=== PATIENT | male | born 1960 | race Caucasian/White ===

== ENCOUNTER 2017-12-29 13:36 | Emergency (ER) | payer MEDICAID, OTHER ==
[~2017-12-29] VITALS: Ht 195.6 cm; Wt 124.6 kg
[~2017-12-29 13:36] MED LIST: NO HOME MEDS
[2017-12-29] MEDS ORDERED: METO-467 PO (14:48)
[2017-12-29 14:56] VITALS: BP 176/92
== END 2017-12-29 14:58 | disposition home or self-care (01) ==
LOC: ER 13:36
DX: I10 Essential (primary) hypertension (principal); F17.200 Nicotine dependence, unspecified, uncomplicated
CPT/HCPCS: 99283

== ENCOUNTER 2021-02-02 10:54 | Inpatient (IN) | payer MEDICAID, OTHER ==
[~2021-02-02] VITALS: Ht 198.1 cm; Wt 131.0 kg
[2021-02-02] VITALS (9 sets, daily range): BP systolic 103–168; BP diastolic 57–150
[~2021-02-02 10:54] MED LIST changes: +METO-467 PO
[2021-02-02] MEDS ORDERED: aspirin 81mg tab.chew PO ONE (11:10)
[2021-02-02] MEDS ORDERED: nitroGLYCERIN 0.4mg SUBLingual tab SL PRN ×2 (11:10→17:50)
[2021-02-02] MEDS ORDERED: furosemide 10 MG/1 ML 10ml inj IV ONE (11:10)
[2021-02-02] MEDS ORDERED: diltiazem 5mg/ml 5ml inj. IV ONE (11:15)
[2021-02-02 11:40] LABS: BASOPHILS # (AUTO) 0.1 X10'3 (0-0.2); BASOPHILS % (AUTO) 0.8 % (0-1); EOSINOPHILS # (AUTO) 0.1 X10'3 (0-0.9); EOSINOPHILS % (AUTO) 1.3 % (0-6); HEMATOCRIT 36.9 % (42.0-52.0); HEMOGLOBIN 11.8 g/dl (14.0-17.9); MEAN CORPUSCULAR HEMOGLOBIN 28.2 PG (27.0-31.0); MEAN CORPUSCULAR HGB CONC 31.9 g/dL (33.0-36.5); MEAN CORPUSCULAR VOLUME 88.2 FL (78-98); MONOCYTES # (AUTO) 0.6 X10'3 (0-0.9); MONOCYTES % (AUTO) 7.3 % (2-12); NEUTROPHILS # (AUTO) 6.5 X10'3 (1.8-7.7); NEUTROPHILS % (AUTO) 78.6 % (42-75); PLATELET COUNT 245 X10'3 (140-440); RED BLOOD COUNT 4.18 X10'6 (4.70-6.10); RED CELL DISTRIBUTION WIDTH 15.5 % (11.5-14.5); WHITE BLOOD COUNT 8.3 X10'3 (4.5-11.0)
[2021-02-02 11:40] LABS: ABG BASE EXCESS -1.5 mmol/L (-2.0-2.0); ABG HCO3 23.1 mmol/L (22.0-26.0); ABG OXYGEN SATURATION 90.8 % (94-97); ABG PCO2 (T) 38.5 mmHg (35.0-48.0); ABG PO2 (T) 64.4 mmHg (75.0-100.0); ALLEN'S TEST POSITIVE; FMetHb 0.2 % (0.0-1.5); FO2Hb 89.7 % (94-97); PATIENT TEMPERATURE 37.1; TOTAL HEMOGLOBIN 12.2 G/dl (14.0-18.0)
[2021-02-02] MEDS: diltiazem-NS 100mg/100ml 100 ML IV SCH (11:50)
[2021-02-02 11:59] LABS: ALANINE AMINOTRANSFERASE 30 U/L (12-78); ALBUMIN 3.2 G/DL (3.4-5.0); ALBUMIN/GLOBULIN RATIO 0.7 (1.1-1.5); ALKALINE PHOSPHATASE 70 IU/L (46-116); ANION GAP 9 (8-16); BILIRUBIN,TOTAL 0.9 MG/DL (0.1-1.0); BLOOD UREA NITROGEN 31 MG/DL (7-18); BUN/CREATININE RATIO 16.8 (5.4-32.0); CALCIUM 9.1 MG/DL (8.5-10.1); CHLORIDE 107 MMOL/L (99-107); CREATININE 1.84 MG/DL (0.60-1.10); GLUCOSE 142 MG/DL (70-104); SODIUM 141 MMOL/L (135-145); TOTAL CARBON DIOXIDE 24.6 MMOL/L (24-32); TOTAL PROTEIN 7.8 G/DL (6.4-8.2); eGFR 38 ML/MIN
[2021-02-02 12:10] LABS: MAGNESIUM 1.8 MG/DL (1.5-2.4)
[2021-02-02 12:11] LABS: ASPARTATE AMINO TRANSFERASE 32 U/L (10-37); POTASSIUM 4.7 MMOL/L (3.5-5.1)
[2021-02-02] MEDS ORDERED: HYDR25TA4 PO (12:17)
[2021-02-02] MEDS ORDERED: LISI10TA27 PO (12:17)
[2021-02-02] MEDS ORDERED: heparin 10,000 units/1 ML INJ IV ONE ×2 (12:20→12:25)
[2021-02-02 12:33] LABS: PARTIAL THROMBOPLASTIN TIME 29 SECONDS (22-32)
[2021-02-02] MEDS ORDERED: magnesium 4gm in 100ml NS 100 ML IV PRN (12:50)
[2021-02-02] MEDS ORDERED: magnesium 2GM in 50ml NS 50 ML IV PRN (12:50)
[2021-02-02] MEDS ORDERED: potassium Cl 20 mEq SR tablet PO PRN ×2 (12:50)
[2021-02-02] MEDS ORDERED: magnesium Cl slow-release 64mg tablet PO PRN (12:50)
[2021-02-02] MEDS ORDERED: ondansetron/PF 4mg/2ml inj IV PRN (12:50)
[2021-02-02] MEDS ORDERED: morphine 2 MG/ML inj. syringe IV PRN (12:50)
[2021-02-02] MEDS ORDERED: potassium Cl 40MEQ/1/2NS 520ml 520 ML IV PRN ×2 (12:50)
[2021-02-02] MEDS ORDERED: acetaminophen 325mg tablet PO PRN (12:50)
--- NOTE | 2021-02-02 13:50 | NUR ---
Patient in room PCU 3028. I have received report from Teofilo SANDHU and had the opportunity to ask questions and assume patient care.
[2021-02-02] MEDS: heparin 25,000 UNIT/250ml bag 250 ML IV SCH (13:57)
--- NOTE | 2021-02-02 14:00 | NUR ---
Patient oriented to room. Call light within reach.
[2021-02-02] MEDS: carVEDilol 12.5mg tablet PO SCH (15:36)
[2021-02-02] MEDS ORDERED: hydrALAZINE 20mg/ml inj. IV PRN (17:10)
[2021-02-02] MEDS ORDERED: furosemide 40mg/4ml inj IV ONE ×2 (17:25→23:00)
[2021-02-02] MEDS: furosemide 40mg/4ml inj IV SCH (17:26)
[2021-02-02] MEDS: potassium Cl 20 mEq SR tablet PO SCH (17:31)
[2021-02-02] MEDS ORDERED: aminophylline 250mg/10ml inj. IV PRN (17:50)
[2021-02-02] MEDS ORDERED: regadenoson 0.4mg/5ml syringe IV PRN (17:50)
[2021-02-02] MEDS ORDERED: metoprolol tartrate 1mg/ml inj IV PRN (17:50)
--- NOTE | 2021-02-02 18:08 | NUR ---
Paged Dr. Javier regarding heart rate. PAGER ID: [phone] MESSAGE: [phone] Shane Ross. Heart rate 130s, now in Aflutter. Walk Score [phone].
--- NOTE | 2021-02-02 18:30 | NUR ---
received order from MD to increase the dosage of cardizem drip
[2021-02-02] MEDS: K and/or MAG REPLACEMENT MC SCH (20:00)
[2021-02-02] MEDS ORDERED: heparin, porcine 5000 units/ml vial SQ SCH (20:00)
[2021-02-02] MEDS: heparin 10,000 units/1 ML INJ IV PRN (20:58)
[2021-02-03] VITALS (21 sets, daily range): BP systolic 96–146; BP diastolic 50–107
--- NOTE | 2021-02-03 | NUR ---
pt alert and oriented. heart rate keeps above 130 after cardizem drip being increased to 10ml/hr. MD being called again and ordered digoxin. HR went down 70 several hours and went up to around 111 after a while. and my last round was 71 in the monitor. pt resting on bed quietly during all shift. no complaining of pain. being npo after midnight for possible test this morning. heparin drip increased twice. next ptt 1000. keep monitoring
[2021-02-03] MEDS: diltiazem-NS 100mg/100ml 100 ML IV SCH (01:47)
--- NOTE | 2021-02-03 02:39 | NUR ---
PAGER ID: [phone] MESSAGE: PT IN ROOM 3028 A HAS SUSTAINABLE HR 137-138, AFIB/AFLUTTER. ON CARDIZEM DRIP 10ML/HR.PLEASE ADVISE GERMAIN EXT [id number]
[2021-02-03] MEDS ORDERED: digoxin 250mcg/ml 2ml ampule IV ONE ×2 (02:55→09:00)
[2021-02-03] MEDS: heparin 10,000 units/1 ML INJ IV PRN ×2 (04:18→13:12)
[2021-02-03 06:07] LABS: BASOPHILS # (AUTO) 0.1 X10'3 (0-0.2); BASOPHILS % (AUTO) 0.7 % (0-1); EOSINOPHILS # (AUTO) 0.3 X10'3 (0-0.9); EOSINOPHILS % (AUTO) 4.5 % (0-6); HEMATOCRIT 38.7 % (42.0-52.0); HEMOGLOBIN 12.3 g/dl (14.0-17.9); LYMPHOCYTES # (AUTO) 1.6 X10'3 (1.1-4.8); LYMPHOCYTES % (AUTO) 21.8 % (21-51); MEAN CORPUSCULAR HEMOGLOBIN 28.6 PG (27.0-31.0); MEAN CORPUSCULAR HGB CONC 31.7 g/dL (33.0-36.5); MEAN PLATELET VOLUME 9.3 FL (7.4-10.4); MONOCYTES # (AUTO) 0.7 X10'3 (0-0.9); MONOCYTES % (AUTO) 9.6 % (2-12); NEUTROPHILS # (AUTO) 4.6 X10'3 (1.8-7.7); NEUTROPHILS % (AUTO) 63.4 % (42-75); PLATELET COUNT 251 X10'3 (140-440); RED CELL DISTRIBUTION WIDTH 15.4 % (11.5-14.5); WHITE BLOOD COUNT 7.2 X10'3 (4.5-11.0)
[2021-02-03 06:21] LABS: ALBUMIN 3.1 G/DL (3.4-5.0); ANION GAP 10 (8-16); BLOOD UREA NITROGEN 36 MG/DL (7-18); BUN/CREATININE RATIO 15.3 (5.4-32.0); CALCIUM 9.3 MG/DL (8.5-10.1); CHLORIDE 105 MMOL/L (99-107); CHOL/HDL RATIO 4.9 (0.00-4.99); CHOLESTEROL 133 MG/DL (0-200); CREATININE 2.35 MG/DL (0.60-1.10); GLUCOSE 96 MG/DL (70-104); HDL CHOLESTEROL 27 MG/DL (35-60); LDL CHOLESTEROL 95 MG/DL (50-100); MAGNESIUM 1.9 MG/DL (1.5-2.4); POTASSIUM 3.8 MMOL/L (3.5-5.1); SODIUM 142 MMOL/L (135-145); TOTAL CARBON DIOXIDE 26.7 MMOL/L (24-32); TRIGLYCERIDES 80 MG/DL (20-135); eGFR 29 ML/MIN
--- NOTE | 2021-02-03 06:22 | NUR ---
Patient in room PCU 3028. report given to Gwen SANDHU and had the opportunity to ask questions and assume patient care.
[2021-02-03] MEDS: K and/or MAG REPLACEMENT MC SCH ×2 (08:00→20:00)
[2021-02-03] MEDS: furosemide 40mg/4ml inj IV SCH ×2 (08:55→21:06)
[2021-02-03] MEDS: potassium Cl 20 mEq SR tablet PO SCH ×2 (08:55→17:51)
[2021-02-03] MEDS: carVEDilol 12.5mg tablet PO SCH ×2 (12:09→21:06)
[2021-02-03] MEDS: DOBUTamine-DoBUTrex 500mg/D5W 250 ML IV SCH (12:45)
[2021-02-03] MEDS: heparin 25,000 UNIT/250ml bag 250 ML IV SCH (13:14)
--- NOTE | 2021-02-03 15:27 | NUR ---
Katie Javier with results of stress test
--- NOTE | 2021-02-03 19:00 | NUR ---
PTT 59 . STILL IN THERAPEUTIC LEVEL. KEEP THE CURRENT DOSE. RECEIVED REPORT FROM WESTLEY. NO ACUTE DISTRESS DOBUTAMINE DRIP AND HEPARIN DRIP RUNNING. KEEP MONITORING
[2021-02-04] MEDS: DOBUTamine-DoBUTrex 500mg/D5W 250 ML IV SCH ×3 (01:30→19:46)
[2021-02-04 02:00] VITALS: BP 99/59
[2021-02-04 02:02] LABS: BASOPHILS # (AUTO) 0.1 X10'3 (0-0.2); BASOPHILS % (AUTO) 1.1 % (0-1); EOSINOPHILS # (AUTO) 0.3 X10'3 (0-0.9); EOSINOPHILS % (AUTO) 4.4 % (0-6); HEMATOCRIT 37.9 % (42.0-52.0); HEMOGLOBIN 12.2 g/dl (14.0-17.9); LYMPHOCYTES # (AUTO) 1.6 X10'3 (1.1-4.8); LYMPHOCYTES % (AUTO) 21.3 % (21-51); MEAN CORPUSCULAR HEMOGLOBIN 27.9 PG (27.0-31.0); MEAN CORPUSCULAR HGB CONC 32.1 g/dL (33.0-36.5); MEAN CORPUSCULAR VOLUME 86.8 FL (78-98); MEAN PLATELET VOLUME 8.6 FL (7.4-10.4); MONOCYTES # (AUTO) 0.8 X10'3 (0-0.9); MONOCYTES % (AUTO) 10.7 % (2-12); NEUTROPHILS # (AUTO) 4.5 X10'3 (1.8-7.7); NEUTROPHILS % (AUTO) 62.5 % (42-75); PLATELET COUNT 279 X10'3 (140-440); RED BLOOD COUNT 4.37 X10'6 (4.70-6.10); RED CELL DISTRIBUTION WIDTH 15.4 % (11.5-14.5); WHITE BLOOD COUNT 7.3 X10'3 (4.5-11.0)
[2021-02-04 02:13] LABS: ALBUMIN 2.9 G/DL (3.4-5.0); ANION GAP 10 (8-16); BLOOD UREA NITROGEN 49 MG/DL (7-18); BUN/CREATININE RATIO 18.3 (5.4-32.0); CALCIUM 8.9 MG/DL (8.5-10.1); CHLORIDE 105 MMOL/L (99-107); CREATININE 2.68 MG/DL (0.60-1.10); GLUCOSE 123 MG/DL (70-104); MAGNESIUM 1.9 MG/DL (1.5-2.4); POTASSIUM 3.9 MMOL/L (3.5-5.1); SODIUM 143 MMOL/L (135-145); TOTAL CARBON DIOXIDE 27.9 MMOL/L (24-32); eGFR 25 ML/MIN
[2021-02-04] MEDS: heparin 10,000 units/1 ML INJ IV PRN (03:08)
--- NOTE | 2021-02-04 03:17 | NUR ---
PTT 40 HEPARIN RATE INCREASED. AND 4000 UNITS OF BOLUS GIVEN. NO ACUTE DISTRESS AT THIS TIME.
[2021-02-04 06:00] VITALS: BP 128/82
[2021-02-04] MEDS: HYDROchlorothiazide 25mg tablet PO SCH (07:56)
[2021-02-04] MEDS: furosemide 40mg/4ml inj IV SCH (07:56)
[2021-02-04] MEDS: carVEDilol 12.5mg tablet PO SCH ×2 (07:56→19:47)
[2021-02-04] MEDS: potassium Cl 20 mEq SR tablet PO SCH ×2 (07:56→17:10)
[2021-02-04] MEDS: K and/or MAG REPLACEMENT MC SCH ×2 (08:00→19:47)
[2021-02-04 11:00] VITALS: BP 118/61
[2021-02-04] MEDS: heparin 25,000 UNIT/250ml bag 250 ML IV SCH (11:43)
[2021-02-04 15:00] VITALS: BP 108/42
[2021-02-04 16:54] LABS: PARTIAL THROMBOPLASTIN TIME 27 SECONDS (22-32)
[2021-02-04 18:00] VITALS: BP 110/56
[2021-02-04 18:38] VITALS: BP 110/56
[2021-02-04] MEDS: amiodarone 200mg tablet PO SCH (23:14)
[2021-02-04 23:15] LABS: ALANINE AMINOTRANSFERASE 27 U/L (12-78); ALBUMIN/GLOBULIN RATIO 0.7 (1.1-1.5); ALKALINE PHOSPHATASE 63 IU/L (46-116); ASPARTATE AMINO TRANSFERASE 20 U/L (10-37); BILIRUBIN,DIRECT 0.2 MG/DL (0-0.3); BILIRUBIN,TOTAL 0.5 MG/DL (0.1-1.0); TOTAL PROTEIN 6.9 G/DL (6.4-8.2)
[2021-02-05] VITALS (8 sets, daily range): BP systolic 88–131; BP diastolic 53–76
[2021-02-05 06:43] LABS: BASOPHILS # (AUTO) 0.1 X10'3 (0-0.2); BASOPHILS % (AUTO) 1.2 % (0-1); EOSINOPHILS # (AUTO) 0.3 X10'3 (0-0.9); HEMATOCRIT 40.5 % (42.0-52.0); HEMOGLOBIN 12.7 g/dl (14.0-17.9); LYMPHOCYTES # (AUTO) 1.3 X10'3 (1.1-4.8); LYMPHOCYTES % (AUTO) 20.2 % (21-51); MEAN CORPUSCULAR HEMOGLOBIN 27.7 PG (27.0-31.0); MEAN CORPUSCULAR HGB CONC 31.4 g/dL (33.0-36.5); MEAN CORPUSCULAR VOLUME 88.1 FL (78-98); MEAN PLATELET VOLUME 7.9 FL (7.4-10.4); MONOCYTES # (AUTO) 0.7 X10'3 (0-0.9); MONOCYTES % (AUTO) 11.7 % (2-12); NEUTROPHILS % (AUTO) 62.9 % (42-75); PLATELET COUNT 331 X10'3 (140-440); RED BLOOD COUNT 4.59 X10'6 (4.70-6.10); RED CELL DISTRIBUTION WIDTH 15.8 % (11.5-14.5); WHITE BLOOD COUNT 6.4 X10'3 (4.5-11.0)
[2021-02-05 07:14] LABS: ALBUMIN 3.2 G/DL (3.4-5.0); ANION GAP 7 (8-16); BLOOD UREA NITROGEN 54 MG/DL (7-18); BUN/CREATININE RATIO 20.1 (5.4-32.0); CALCIUM 9.4 MG/DL (8.5-10.1); CHLORIDE 104 MMOL/L (99-107); CREATININE 2.69 MG/DL (0.60-1.10); GLUCOSE 96 MG/DL (70-104); MAGNESIUM 2.1 MG/DL (1.5-2.4); POTASSIUM 4.2 MMOL/L (3.5-5.1); SODIUM 140 MMOL/L (135-145); TOTAL CARBON DIOXIDE 29.4 MMOL/L (24-32); eGFR 24 ML/MIN
[2021-02-05] MEDS: potassium Cl 20 mEq SR tablet PO SCH ×2 (07:18→17:14)
[2021-02-05] MEDS: HYDROchlorothiazide 25mg tablet PO SCH (07:18)
[2021-02-05] MEDS: amiodarone 200mg tablet PO SCH ×2 (07:18→20:47)
[2021-02-05] MEDS: carVEDilol 12.5mg tablet PO SCH ×2 (07:18→20:47)
[2021-02-05] MEDS: K and/or MAG REPLACEMENT MC SCH ×2 (08:00→20:00)
[2021-02-05] MEDS ORDERED: MIDAZolam 1mg/ml 10ml vial IV ONE (08:30)
[2021-02-05] MEDS: DOBUTamine-DoBUTrex 500mg/D5W 250 ML IV SCH (08:38)
[2021-02-05] MEDS ORDERED: MIDAZolam 5mg/ml 2ml vial IV ONE (09:00)
[2021-02-05] MEDS ORDERED: morphine 10mg/ml inj. IV ONE (09:00)
[2021-02-05] MEDS: apixaban 5mg tablet PO SCH ×2 (09:38→20:47)
[2021-02-05] MEDS ORDERED: ondansetron 4mg rapidly disintigrating tab PO PRN (11:30)
--- NOTE | 2021-02-05 13:44 | NUR ---
REI and cardioversion performed at bedside around 1240. patient tolerated well. AT this time, patient has just eaten lunch, is awake and alert and RN spoke with mother on the phone for an update.
[2021-02-06 02:00] VITALS: BP 126/66
[2021-02-06] MEDS: DOBUTamine-DoBUTrex 500mg/D5W 250 ML IV SCH ×2 (05:06→16:35)
[2021-02-06 06:00] VITALS: BP 114/59
--- NOTE | 2021-02-06 06:26 | NUR ---
Problems reprioritized. Patient report given, questions answered & plan of care reviewed with Sammie.
[2021-02-06 07:07] LABS: BASOPHILS # (AUTO) 0.1 X10'3 (0-0.2); BASOPHILS % (AUTO) 0.9 % (0-1); EOSINOPHILS # (AUTO) 0.3 X10'3 (0-0.9); EOSINOPHILS % (AUTO) 4.7 % (0-6); HEMATOCRIT 36.7 % (42.0-52.0); HEMOGLOBIN 11.8 g/dl (14.0-17.9); LYMPHOCYTES # (AUTO) 1.4 X10'3 (1.1-4.8); LYMPHOCYTES % (AUTO) 20.9 % (21-51); MEAN CORPUSCULAR HEMOGLOBIN 28.1 PG (27.0-31.0); MEAN CORPUSCULAR HGB CONC 32.2 g/dL (33.0-36.5); MEAN CORPUSCULAR VOLUME 87.4 FL (78-98); MEAN PLATELET VOLUME 8.3 FL (7.4-10.4); MONOCYTES # (AUTO) 0.7 X10'3 (0-0.9); MONOCYTES % (AUTO) 10.7 % (2-12); NEUTROPHILS # (AUTO) 4.3 X10'3 (1.8-7.7); NEUTROPHILS % (AUTO) 62.8 % (42-75); PLATELET COUNT 321 X10'3 (140-440); RED CELL DISTRIBUTION WIDTH 15.6 % (11.5-14.5); WHITE BLOOD COUNT 6.9 X10'3 (4.5-11.0)
[2021-02-06 07:19] LABS: ALBUMIN 3.1 G/DL (3.4-5.0); ANION GAP 8 (8-16); BLOOD UREA NITROGEN 65 MG/DL (7-18); BUN/CREATININE RATIO 19.9 (5.4-32.0); CALCIUM 9.1 MG/DL (8.5-10.1); CHLORIDE 103 MMOL/L (99-107); CREATININE 3.27 MG/DL (0.60-1.10); GLUCOSE 100 MG/DL (70-104); MAGNESIUM 2.2 MG/DL (1.5-2.4); POTASSIUM 4.6 MMOL/L (3.5-5.1); SODIUM 138 MMOL/L (135-145); TOTAL CARBON DIOXIDE 27.5 MMOL/L (24-32); eGFR 19 ML/MIN
[2021-02-06] MEDS: K and/or MAG REPLACEMENT MC SCH ×2 (08:00→20:00)
[2021-02-06] MEDS: potassium Cl 20 mEq SR tablet PO SCH (09:39)
[2021-02-06] MEDS: apixaban 5mg tablet PO SCH ×2 (09:39→20:43)
[2021-02-06] MEDS: HYDROchlorothiazide 25mg tablet PO SCH (09:40)
[2021-02-06] MEDS: carVEDilol 12.5mg tablet PO SCH ×2 (09:40→20:43)
[2021-02-06] MEDS: amiodarone 100mg tablet PO SCH ×2 (09:44→20:43)
[2021-02-06 11:00] VITALS: BP 101/60
[2021-02-06 15:00] VITALS: BP 120/57
--- NOTE | 2021-02-06 16:19 | NUR ---
Initial: Pt presented with worsening SOB; admitted for management of A.fib, CHF, and COPD. Pt is on a double protein diet PO is 75%. Pt has good appetite and has been improving. Last 3 meals have been 100%. No nutrition problem at this time. Will continue to follow. Addendum: 02/06/21 at [address] Amended: Links added. Addendum: 02/06/21 at [address] RD agree with note
[2021-02-06 18:00] VITALS: BP 107/48
--- NOTE | 2021-02-06 18:20 | NUR ---
Problems reprioritized. Patient report given, questions answered & plan of care reviewed with EDSON Barreto.
[2021-02-06 22:00] VITALS: BP 135/66
[2021-02-07] VITALS (7 sets, daily range): BP systolic 96–128; BP diastolic 39–86
[2021-02-07] MEDS: DOBUTamine-DoBUTrex 500mg/D5W 250 ML IV SCH ×2 (04:48→08:54)
[2021-02-07 06:26] LABS: BASOPHILS # (AUTO) 0.1 X10'3 (0-0.2); BASOPHILS % (AUTO) 0.8 % (0-1); EOSINOPHILS # (AUTO) 0.3 X10'3 (0-0.9); EOSINOPHILS % (AUTO) 5.1 % (0-6); HEMATOCRIT 37.3 % (42.0-52.0); HEMOGLOBIN 11.9 g/dl (14.0-17.9); LYMPHOCYTES # (AUTO) 1.3 X10'3 (1.1-4.8); LYMPHOCYTES % (AUTO) 19.2 % (21-51); MEAN CORPUSCULAR HEMOGLOBIN 27.9 PG (27.0-31.0); MEAN CORPUSCULAR HGB CONC 31.9 g/dL (33.0-36.5); MEAN CORPUSCULAR VOLUME 87.5 FL (78-98); MEAN PLATELET VOLUME 8.6 FL (7.4-10.4); MONOCYTES # (AUTO) 0.7 X10'3 (0-0.9); MONOCYTES % (AUTO) 10.4 % (2-12); NEUTROPHILS # (AUTO) 4.2 X10'3 (1.8-7.7); NEUTROPHILS % (AUTO) 64.5 % (42-75); PLATELET COUNT 294 X10'3 (140-440); RED BLOOD COUNT 4.26 X10'6 (4.70-6.10); RED CELL DISTRIBUTION WIDTH 15.3 % (11.5-14.5); WHITE BLOOD COUNT 6.5 X10'3 (4.5-11.0)
[2021-02-07 06:41] LABS: ALBUMIN 3.1 G/DL (3.4-5.0); ANION GAP 11 (8-16); BLOOD UREA NITROGEN 69 MG/DL (7-18); BUN/CREATININE RATIO 21.6 (5.4-32.0); CHLORIDE 104 MMOL/L (99-107); CREATININE 3.19 MG/DL (0.60-1.10); GLUCOSE 92 MG/DL (70-104); MAGNESIUM 2.3 MG/DL (1.5-2.4); POTASSIUM 4.5 MMOL/L (3.5-5.1); SODIUM 140 MMOL/L (135-145); TOTAL CARBON DIOXIDE 25.4 MMOL/L (24-32); eGFR 20 ML/MIN
--- NOTE | 2021-02-07 06:42 | NUR ---
Patient in room PCU 3012. I have received report from EDSON Barreto and had the opportunity to ask questions and assume patient care.
[2021-02-07] MEDS: apixaban 5mg tablet PO SCH ×2 (07:15→21:57)
[2021-02-07] MEDS: carVEDilol 12.5mg tablet PO SCH ×2 (07:15→21:57)
[2021-02-07] MEDS: amiodarone 100mg tablet PO SCH (07:15)
[2021-02-07] MEDS: K and/or MAG REPLACEMENT MC SCH ×2 (07:17→20:00)
[2021-02-07 10:13] LABS: ALANINE AMINOTRANSFERASE 85 U/L (12-78); ALBUMIN/GLOBULIN RATIO 0.8 (1.1-1.5); ALKALINE PHOSPHATASE 60 IU/L (46-116); ASPARTATE AMINO TRANSFERASE 73 U/L (10-37); BILIRUBIN,DIRECT 0.2 MG/DL (0-0.3); BILIRUBIN,TOTAL 0.4 MG/DL (0.1-1.0); TOTAL PROTEIN 7.2 G/DL (6.4-8.2)
[2021-02-07] MEDS ORDERED: amiodarone 200mg tablet PO SCH (10:35)
[2021-02-07 11:50] LABS: TOTAL PROTEIN,URINE RANDOM 14.2 MG/DL
--- NOTE | 2021-02-07 18:02 | NUR ---
Patient report received from and discussed with Sammie.
--- NOTE | 2021-02-07 18:30 | NUR ---
Problems reprioritized. Patient report given, questions answered & plan of care reviewed with EDSON Anderson.
[2021-02-07] MEDS: amiodarone 200mg tablet PO SCH (21:57)
--- NOTE | 2021-02-08 06:20 | NUR ---
Report given to and discussed with Cristy SANDHU.
--- NOTE | 2021-02-08 06:39 | NUR ---
Patient in room PCU 3012. I have received report from Justin SANDHU and had the opportunity to ask questions and assume patient care.
[2021-02-08 07:00] VITALS: BP 122/46
[2021-02-08 07:22] LABS: MAGNESIUM 2.3 MG/DL (1.5-2.4)
[2021-02-08] MEDS: DOBUTamine-DoBUTrex 500mg/D5W 250 ML IV SCH ×2 (07:22→18:51)
[2021-02-08] MEDS: amiodarone 200mg tablet PO SCH ×2 (07:23→19:47)
[2021-02-08] MEDS: apixaban 5mg tablet PO SCH ×2 (07:23→19:47)
[2021-02-08] MEDS: carVEDilol 12.5mg tablet PO SCH ×2 (07:23→19:47)
[2021-02-08] MEDS: K and/or MAG REPLACEMENT MC SCH ×2 (08:00→20:00)
[2021-02-08] MEDS: normal saline 1000ml 1,000 ML IV SCH (09:41)
[2021-02-08 09:52] LABS: BASOPHILS % (AUTO) 0.7 % (0-1); EOSINOPHILS # (AUTO) 0.4 X10'3 (0-0.9); EOSINOPHILS % (AUTO) 5.1 % (0-6); HEMATOCRIT 38.5 % (42.0-52.0); LYMPHOCYTES # (AUTO) 1.3 X10'3 (1.1-4.8); MEAN CORPUSCULAR HEMOGLOBIN 27.6 PG (27.0-31.0); MEAN CORPUSCULAR VOLUME 88.8 FL (78-98); MEAN PLATELET VOLUME 8.9 FL (7.4-10.4); MONOCYTES # (AUTO) 0.8 X10'3 (0-0.9); MONOCYTES % (AUTO) 10.7 % (2-12); NEUTROPHILS # (AUTO) 4.6 X10'3 (1.8-7.7); NEUTROPHILS % (AUTO) 65.5 % (42-75); PLATELET COUNT 292 X10'3 (140-440); RED BLOOD COUNT 4.34 X10'6 (4.70-6.10); RED CELL DISTRIBUTION WIDTH 15.4 % (11.5-14.5)
[2021-02-08 09:58] LABS: ALANINE AMINOTRANSFERASE 68 U/L (12-78); ALBUMIN 3.1 G/DL (3.4-5.0); ALBUMIN/GLOBULIN RATIO 0.7 (1.1-1.5); ALKALINE PHOSPHATASE 59 IU/L (46-116); ANION GAP 11 (8-16); ASPARTATE AMINO TRANSFERASE 45 U/L (10-37); BILIRUBIN,TOTAL 0.4 MG/DL (0.1-1.0); BLOOD UREA NITROGEN 69 MG/DL (7-18); BUN/CREATININE RATIO 25.2 (5.4-32.0); CALCIUM 8.9 MG/DL (8.5-10.1); CHLORIDE 105 MMOL/L (99-107); CREATININE 2.74 MG/DL (0.60-1.10); GLUCOSE 92 MG/DL (70-104); POTASSIUM 4.3 MMOL/L (3.5-5.1); SODIUM 139 MMOL/L (135-145); TOTAL CARBON DIOXIDE 22.8 MMOL/L (24-32); TOTAL PROTEIN 7.3 G/DL (6.4-8.2); eGFR 24 ML/MIN
[2021-02-08 11:00] VITALS: BP 128/87
[2021-02-08 15:00] VITALS: BP 121/68
[2021-02-08 18:00] VITALS: BP 134/67
--- NOTE | 2021-02-08 18:00 | NUR ---
Patient in room PCU 3012. I have received report from Cristy SANDHU and had the opportunity to ask questions and assume patient care. Pt resting in bed. NAD noted, RR even and unlabored. Pt voiced no concerns. Safety precautions in place. Will continue to monitor.
--- NOTE | 2021-02-08 18:06 | NUR ---
Problems reprioritized. Patient report given, questions answered & plan of care reviewed with Janina SANDHU. Patient stable at transfer of care.
[2021-02-08 22:00] VITALS: BP 156/74
[2021-02-09 02:00] VITALS: BP 122/43
[2021-02-09] MEDS: normal saline 1000ml 1,000 ML IV SCH ×2 (05:40→07:30)
[2021-02-09 06:00] VITALS: BP 109/60
--- NOTE | 2021-02-09 06:28 | NUR ---
Problems reprioritized. Patient report given, questions answered & plan of care reviewed with Cristy Rodriguez.
--- NOTE | 2021-02-09 06:32 | NUR ---
Patient in room PCU 3012. I have received report from Janina SANDHU and had the opportunity to ask questions and assume patient care.
[2021-02-09 07:23] LABS: MAGNESIUM 2.2 MG/DL (1.5-2.4)
[2021-02-09] MEDS: amiodarone 200mg tablet PO SCH (07:30)
[2021-02-09] MEDS: apixaban 5mg tablet PO SCH (07:30)
[2021-02-09] MEDS: carVEDilol 12.5mg tablet PO SCH (07:30)
[2021-02-09 07:44] LABS: BASOPHILS # (AUTO) 0.1 X10'3 (0-0.2); BASOPHILS % (AUTO) 0.9 % (0-1); EOSINOPHILS # (AUTO) 0.4 X10'3 (0-0.9); EOSINOPHILS % (AUTO) 4.9 % (0-6); HEMATOCRIT 37.6 % (42.0-52.0); LYMPHOCYTES # (AUTO) 1.4 X10'3 (1.1-4.8); LYMPHOCYTES % (AUTO) 18.5 % (21-51); MEAN CORPUSCULAR HEMOGLOBIN 27.9 PG (27.0-31.0); MEAN CORPUSCULAR HGB CONC 31.9 g/dL (33.0-36.5); MEAN CORPUSCULAR VOLUME 87.5 FL (78-98); MEAN PLATELET VOLUME 9.3 FL (7.4-10.4); MONOCYTES # (AUTO) 0.8 X10'3 (0-0.9); MONOCYTES % (AUTO) 11.5 % (2-12); NEUTROPHILS # (AUTO) 4.7 X10'3 (1.8-7.7); NEUTROPHILS % (AUTO) 64.2 % (42-75); PLATELET COUNT 266 X10'3 (140-440); RED CELL DISTRIBUTION WIDTH 15.6 % (11.5-14.5); WHITE BLOOD COUNT 7.3 X10'3 (4.5-11.0)
[2021-02-09 07:59] LABS: ANION GAP 13 (8-16); BLOOD UREA NITROGEN 56 MG/DL (7-18); BUN/CREATININE RATIO 22.1 (5.4-32.0); CALCIUM 8.7 MG/DL (8.5-10.1); CHLORIDE 108 MMOL/L (99-107); CREATININE 2.53 MG/DL (0.60-1.10); GLUCOSE 91 MG/DL (70-104); POTASSIUM 4.8 MMOL/L (3.5-5.1); SODIUM 142 MMOL/L (135-145); TOTAL CARBON DIOXIDE 21.2 MMOL/L (24-32); eGFR 26 ML/MIN
[2021-02-09] MEDS: K and/or MAG REPLACEMENT MC SCH (08:00)
[2021-02-09] MEDS ORDERED: AMIO200T67 PO (09:06)
[2021-02-09] MEDS ORDERED: CARV-50 PO (09:06)
[2021-02-09] MEDS ORDERED: APIX5TAB3 PO (09:06)
[2021-02-09 11:00] VITALS: BP 125/70
--- NOTE | 2021-02-09 13:15 | NUR ---
Patient is stable for discharge per MD orders. All discharge instructions reviewed with patient and all questioned answered. New prescriptions sent electronically to the pharmacy. PIV discontinued cannula intact. 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 Belongings collected and sent with patient. Wheeled to the lobby by nursing staff. Went home with family in private vehicle.
[2021-02-10 10:02] LABS: A/G RATIO 0.8 (0.7-1.7); BETA GLOBULIN 1.4 g/dL (0.7-1.3); GAMMA GLOBULIN 1.2 g/dL (0.4-1.8); GLOBULIN, TOTAL 3.7 g/dL (2.2-3.9); M-SPIKE Not Observed g/dL (Not Observed); PROTEIN, TOTAL, SERUM 6.7 g/dL (6.0-8.5)
[2021-02-10 15:28] LABS: ANTINUCLEAR ANTIBODIES Positive (Negative)
== END 2021-02-09 13:15 | disposition home or self-care (01) | DRG 280 ==
LOC: ER 10:54 → ED HOLD 12:49 → PCU 3S 13:40
PROVIDERS: ADMIT Internal Medicine; ATTEND Internal Medicine
PROC: 4A02XM4 Measurement of Cardiac Total Activity, External Approach (ICD-10-PCS; 2021-02-03)
PROC: 3E073KZ Introduction of Other Diagnostic Substance into Coronary Artery, Percutaneous Approach (ICD-10-PCS; 2021-02-03)
PROC: 5A2204Z Restoration of Cardiac Rhythm, Single (ICD-10-PCS; principal; 2021-02-05)
DX: I21.4 Non-ST elevation (NSTEMI) myocardial infarction (principal); I50.23 Acute on chronic systolic (congestive) heart failure; I13.0 Hypertensive heart and chronic kidney disease with heart failure and stage 1 through stage 4 chronic kidney disease, or unspecified chronic kidney disease; N17.9 Acute kidney failure, unspecified; N18.30 Chronic kidney disease, stage 3 unspecified; F17.210 Nicotine dependence, cigarettes, uncomplicated; G47.33 Obstructive sleep apnea (adult) (pediatric); I27.20 Pulmonary hypertension, unspecified; I48.0 Paroxysmal atrial fibrillation; J43.9 Emphysema, unspecified; Z79.01 Long term (current) use of anticoagulants; Z79.899 Other long term (current) drug therapy; Z71.6 Tobacco abuse counseling
CPT/HCPCS: 36415; 36600; 71045; 78452; 80048; 80053; 80061; 80076; 80162; 82570; 82803; 83735; 83880; 84155; 84156; 84165; 84300; 84439; 84443; 84484; 85018; 85025; 85651; 85730; 86038; 87081; 87207; 92960; 93005; 93017; 93306; 93308; 93312; 93325; 93922; 94799; 96365; 96375; 97116; 97161; 97530; 99291; A9500; G0378; J1160; J1250; J1644; J1940; J2250; J2270; J3490; J7030

== ENCOUNTER 2021-03-08 19:41 | Emergency (ER) | payer SELFPAY ==
[~2021-03-08] VITALS: Ht 195.6 cm; Wt 127.3 kg
[~2021-03-08 19:41] MED LIST changes: +AMIO200T67 PO; +APIX5TAB3 PO; +CARV-50 PO; -METO-467 PO; -NO HOME MEDS
[2021-03-08 19:52] VITALS: BP 161/77
[2021-03-08] MEDS ORDERED: APIX5TAB3 PO (21:41)
[2021-03-08] MEDS ORDERED: AMIO200T67 PO ×2 (21:41→21:42)
[2021-03-08] MEDS ORDERED: CARV-50 PO (21:41)
== END 2021-03-08 21:58 | disposition home or self-care (01) ==
LOC: ER 19:41
DX: I11.0 Hypertensive heart disease with heart failure (principal); I50.9 Heart failure, unspecified; I48.91 Unspecified atrial fibrillation; Z76.0 Encounter for issue of repeat prescription; Z79.899 Other long term (current) drug therapy
CPT/HCPCS: 99281

== ENCOUNTER 2021-03-12 10:46 | Emergency (ER) | payer OTHER ==
[~2021-03-12] VITALS: Ht 195.6 cm; Wt 127.3 kg
[2021-03-12 10:53] VITALS: BP 180/95
== END 2021-03-12 11:42 | disposition home or self-care (01) ==
LOC: ER 10:47
DX: I11.0 Hypertensive heart disease with heart failure (principal); I50.9 Heart failure, unspecified; I48.91 Unspecified atrial fibrillation; Z76.0 Encounter for issue of repeat prescription; Z79.899 Other long term (current) drug therapy
CPT/HCPCS: 99281

== ENCOUNTER 2024-12-26 23:52 | Inpatient (IN) | payer BC, MEDICAID ==
[~2024-12-26] VITALS: Ht 193 cm; Wt 110.0 kg
[~2024-12-26 23:52] MED LIST changes: +CARV25TA56 PO; +LACT1CAP55 PO; +LOSA1TAB41 PO; +PRAV20TA4 PO
[2024-12-27] VITALS (11 sets, daily range): BP systolic 106–140; BP diastolic 66–84; PULSE 91–111; RESP 20–33; O2SAT 93–99
[2024-12-27 00:47] LABS: BASOPHILS % (AUTO) 0.7 % (0-1); EOSINOPHILS % (AUTO) 0 % (0-6); HEMATOCRIT 37.3 % (42.0-52.0); HEMOGLOBIN 11.5 g/dl (14.0-17.9); LYMPHOCYTES # (AUTO) 0.3 X10'3 (1.1-4.8); LYMPHOCYTES % (AUTO) 5.3 % (21-51); MEAN CORPUSCULAR HEMOGLOBIN 26.6 PG (27.0-31.0); MEAN CORPUSCULAR HGB CONC 30.8 g/dL (33.0-36.5); MEAN CORPUSCULAR VOLUME 86.5 FL (78-98); MEAN PLATELET VOLUME 8.5 FL (7.4-10.4); MONOCYTES # (AUTO) 0.6 X10'3 (0-0.9); MONOCYTES % (AUTO) 9.3 % (2-12); NEUTROPHILS # (AUTO) 5.1 X10'3 (1.8-7.7); NEUTROPHILS % (AUTO) 84.7 % (42-75); PLATELET COUNT 185 X10'3 (140-440); RED BLOOD COUNT 4.32 X10'6 (4.70-6.10); RED CELL DISTRIBUTION WIDTH 18.9 % (11.5-14.5)
[2024-12-27] MEDS: diltiazem 5mg/ml 5ml inj. IV ONE ×3 (00:50→02:27)
[2024-12-27] MEDS: normal saline 1000ML IV soln IV ONE (00:50)
[2024-12-27] MEDS: magnesium sulf-water 2g/50mL 50 ML IV ONE (00:59)
[2024-12-27 01:02] LABS: ALANINE AMINOTRANSFERASE 34 U/L (12-78); ALBUMIN/GLOBULIN RATIO 0.6 (1.1-1.5); ALKALINE PHOSPHATASE 90 IU/L (46-116); ANION GAP 6 (8-16); ASPARTATE AMINO TRANSFERASE 49 U/L (10-37); BILIRUBIN,TOTAL 1.2 MG/DL (0.1-1.0); BLOOD UREA NITROGEN 31 MG/DL (7-18); BUN/CREATININE RATIO 13.7 (10.0-20.0); CALCIUM 8.7 MG/DL (8.5-10.1); CHLORIDE 102 MMOL/L (99-107); CREATININE 2.27 MG/DL (0.60-1.10); GLUCOSE 113 MG/DL (70-104); SODIUM 135 MMOL/L (135-145); TOTAL CARBON DIOXIDE 27.4 MMOL/L (24-32); TOTAL PROTEIN 8.2 G/DL (6.4-8.2); eCRCL 42 ML/MIN; eGFR 29 ML/MIN
[2024-12-27 01:10] LABS: MAGNESIUM 2.3 MG/DL (1.5-2.4)
[2024-12-27] MEDS: diltiazem-NS 100mg/100ml 100 ML IV PRN (01:18)
[2024-12-27 01:33] LABS: C-REACTIVE PROTEIN 7.96 MG/DL (0.0-0.5)
[2024-12-27] MEDS: heparin 10,000 units/1 ML INJ IV ONE (01:35)
[2024-12-27 01:39] LABS: PRO BRAIN NATRIURETIC PEPTIDE > 30000 PG/ML (0-125)
[2024-12-27 01:40] LABS: APTT 30 SECONDS (22-32); INR 1.4 INR
[2024-12-27 01:43] LABS: PROTHROMBIN TIME 14.1 SECONDS (9.0-12.0)
[2024-12-27] MEDS: MESSAGE TO NURSING IV ONE (02:20)
[2024-12-27 03:01] LABS: ABG HCO3 26.3 mmol/L (21.0-28.0); ABG OXYGEN SATURATION 90.8 % (94.0-98.0); ABG PCO2 (T) 82.1 mmHg (35.0-48.0); ABG PH (T) 7.131 (7.350-7.450); ABG PO2 (T) 85.9 mmHg (83.0-108.0); ALLEN'S TEST Modified; FCOHb 0.8 % (0.5-1.5); FHHb 9.1 % (0.0-5.0); FMetHb 0.2 % (0.0-1.5); FO2Hb 89.9 % (94.0-98.0); MODE NRB MASK; PATIENT TEMPERATURE 38.3; TOTAL HEMOGLOBIN 12.2 G/dl (13.5-17.5)
[2024-12-27] MEDS ORDERED: magnesium sulf-water 2g/50mL 50 ML IV ONE (04:35)
[2024-12-27] MEDS: CefTRIAXone/D5W-Rocephin 1gm 50 ML IV ONE (04:43)
[2024-12-27] MEDS: furosemide 10 MG/1 ML 10ml inj IV ONE (04:46)
[2024-12-27] MEDS: azithromycin/NS 500mg/250ml 250 ML IV ONE (05:43)
[2024-12-27] MEDS ORDERED: acetaminophen 325mg tablet PO PRN ×2 (06:15)
[2024-12-27] MEDS: PERFLUTREN PROTEIN-A MICROSPHR (Optison) 0.22 MG/ML 3ML VIAL IV ONE (06:15)
[2024-12-27] MEDS ORDERED: metoclopramide 5 mg/ml inj IV PRN (06:15)
[2024-12-27] MEDS: LidoCAINE 2% Topical Jelly 11mL syringe (UROJET) TOP ONE (06:15)
[2024-12-27 06:30] LABS: ABG BASE EXCESS -3.8 mmol/L (-2.0-3.0); ABG OXYGEN SATURATION 96.8 % (94.0-98.0); ABG PO2 (T) 109.6 mmHg (83.0-108.0); ALLEN'S TEST POSITIVE; FHHb 3.2 % (0.0-5.0); FMetHb 0.5 % (0.0-1.5); FO2Hb 96.3 % (94.0-98.0); MODE MASK - BIPAP; RESPIRATORY RATE 18 b/min; TOTAL HEMOGLOBIN 11.9 G/dl (13.5-17.5)
[2024-12-27] MEDS: normal saline 500ml IV soln 500 ML IV ONE (06:50)
[2024-12-27] MEDS ORDERED: NORepinephrine 8mg/ 250ml NS 250 ML IV PRN (07:50)
[2024-12-27] MEDS: carvedilol 6.25mg tablet PO SCH (08:00)
[2024-12-27] MEDS: furosemide 10 MG/1 ML 10ml inj IV SCH (08:00)
[2024-12-27] MEDS ORDERED: FENTANYL-0.9 % NACL/PF 100 ML IV SCH (08:00)
[2024-12-27] MEDS ORDERED: succinylcholine 20mg/ml inj IV ONE (08:00)
[2024-12-27] MEDS ORDERED: fentaNYL/PF 50MCG/1 ML 2ML syringe IV PRN (08:00)
[2024-12-27] MEDS: propofol 1000mg/100ml bottle 100 ML IV PRN (08:03)
[2024-12-27] MEDS: succinylcholine 20mg/ml inj IV ONE (08:05)
[2024-12-27] MEDS: MIDAZolam 5mg/ml 2ml vial ONE (08:19)
[2024-12-27] MEDS: NORepinephrine 8mg/ 250ml NS 250 ML IV PRN (08:21)
[2024-12-27] MEDS: FENTANYL-0.9 % NACL/PF 100 ML IV SCH (08:21)
[2024-12-27] MEDS: heparin 10,000 units/1 ML INJ IV PRN (08:30)
[2024-12-27] MEDS: heparin 25,000 UNIT/250ml bag 250 ML IV PRN (08:31)
[2024-12-27 08:34] LABS: ABG BASE EXCESS -4.5 mmol/L (-2.0-3.0); ABG HCO3 25.4 mmol/L (21.0-28.0); ABG OXYGEN SATURATION 97.4 % (94.0-98.0); ABG PCO2 (T) 74.2 mmHg (35.0-48.0); ABG PH (T) 7.151 (7.350-7.450); ALLEN'S TEST POSITIVE; FCOHb 0.4 % (0.5-1.5); FHHb 2.6 % (0.0-5.0); FMetHb 0.2 % (0.0-1.5); FO2Hb 96.8 % (94.0-98.0); MODE VENT - APRV; PATIENT TEMPERATURE 36.8; PEEP 5 cm H2O; RESPIRATORY RATE 20 b/min; TIDAL VOLUME 475 mL; TOTAL HEMOGLOBIN 11.1 G/dl (13.5-17.5)
[2024-12-27] MEDS: pantoprazole 40 MG vial IV SCH (08:34)
[2024-12-27] MEDS: methylPREDNISolone sod succ 125mg/2ml vial IV ONE ×2 (08:35→14:08)
[2024-12-27 11:24] LABS: ABG PH (T) 7.164 (7.350-7.450)
[2024-12-27 13:38] LABS: BILIRUBIN,URINE NEGATIVE (Neg); CLARITY,URINE CLEAR (Clear); COLOR,URINE YELLOW (Yellow); GLUCOSE, URINE NEGATIVE (Neg); KETONES,URINE NEGATIVE (Neg); LEUKOCYTE ESTERASE ,URINE NEGATIVE (Neg); NITRITES, URINE NEGATIVE (Neg); OCCULT BLOOD,URINE LARGE (Neg); PH,URINE 5.5 (4.8-8.0); PROTEIN,URINE NEGATIVE (Neg); UA COLLECTION TYPE NON-SPECIFIED; UROBILINOGEN,URINE 0.2 E.U/dL (0.2-1.0)
[2024-12-27 13:45] LABS: URINE AMPHETAMINE SCREEN POSITIVE (Neg); URINE BARBITUATE SCREEN NEGATIVE (Neg); URINE BENZODIAZEPINES SCREEN POSITIVE (Neg); URINE CANNABINOID SCREEN NEGATIVE (Neg); URINE COCAINE SCREEN NEGATIVE (Neg); URINE METHADONE SCREEN NEGATIVE (Neg); URINE OPIATE SCREEN NEGATIVE (Neg); URINE PHENCYCLIDINE SCREEN NEGATIVE (Neg)
[2024-12-27 13:49] LABS: HYALINE CASTS 0-3 /LPF (NEGATIVE); SQUAMOUS EPITHELIAL CELL,UR FEW /LPF (FEW); WBC,URINE 0-4 /HPF (0-4)
[2024-12-27 13:51] LABS: BACTERIA,URINE 1+ /HPF (Neg)
[2024-12-27 14:32] LABS: UA EOSINOPHILS NO EOS /HPF
[2024-12-27 16:36] LABS: HDL CHOLESTEROL 34 MG/DL (35-60); LDL CHOLESTEROL 39 MG/DL (50-100); OSMOLALITY 307 MOSM/K (280-300); TRIGLYCERIDES 38 MG/DL (20-135)
[2024-12-27 17:07] LABS: CHOL/HDL RATIO 2.3 (0.00-4.99); CHOLESTEROL 79 MG/DL (0-200)
[2024-12-27] MEDS: vancomycin/NS 1 GM ADD-VANTAGE 250 ML IV ONE (20:34)
[2024-12-27 21:58] LABS: ABG BASE EXCESS -2.8 mmol/L (-2.0-3.0); ABG HCO3 22.7 mmol/L (21.0-28.0); ABG PCO2 (T) 42.2 mmHg (35.0-48.0); ABG PH (T) 7.349 (7.350-7.450); ABG PO2 (T) 79.4 mmHg (83.0-108.0); ALLEN'S TEST Modified; FMetHb 0.1 % (0.0-1.5); FO2Hb 94.9 % (94.0-98.0); MODE vnet- ac prvc; PEEP 8 cm H2O; RESPIRATORY RATE 25 b/min; TIDAL VOLUME 525 mL; TOTAL HEMOGLOBIN 11.3 G/dl (13.5-17.5)
[2024-12-28] VITALS (11 sets, daily range): BP systolic 103–145; BP diastolic 69–92; PULSE 105–119; RESP 12–25; O2SAT 89–96
[2024-12-28] MEDS: CefTRIAXone 2gm/D5W 50ml BAG 50 ML IV SCH (03:25)
[2024-12-28] MEDS: CefTRIAXone 2gm/D5W 50ml BAG 50 ML IV ONE (03:29)
[2024-12-28 03:57] LABS: BASOPHILS % (AUTO) 0.1 % (0-1); EOSINOPHILS % (AUTO) 0 % (0-6); HEMATOCRIT 32.4 % (42.0-52.0); HEMOGLOBIN 10.2 g/dl (14.0-17.9); LYMPHOCYTES # (AUTO) 0.3 X10'3 (1.1-4.8); LYMPHOCYTES % (AUTO) 6.2 % (21-51); MEAN CORPUSCULAR HEMOGLOBIN 26.7 PG (27.0-31.0); MEAN CORPUSCULAR HGB CONC 31.6 g/dL (33.0-36.5); MEAN CORPUSCULAR VOLUME 84.7 FL (78-98); MEAN PLATELET VOLUME 8.8 FL (7.4-10.4); MONOCYTES # (AUTO) 0.3 X10'3 (0-0.9); MONOCYTES % (AUTO) 7.1 % (2-12); NEUTROPHILS # (AUTO) 3.9 X10'3 (1.8-7.7); NEUTROPHILS % (AUTO) 86.6 % (42-75); PLATELET COUNT 194 X10'3 (140-440); RED BLOOD COUNT 3.82 X10'6 (4.70-6.10); WHITE BLOOD COUNT 4.5 X10'3 (4.5-11.0)
[2024-12-28 04:24] LABS: ANION GAP 9 (8-16); BLOOD UREA NITROGEN 46 MG/DL (7-18); BUN/CREATININE RATIO 17.2 (10.0-20.0); CALCIUM 8.4 MG/DL (8.5-10.1); CHLORIDE 104 MMOL/L (99-107); CREATININE 2.68 MG/DL (0.60-1.10); POTASSIUM 4.4 MMOL/L (3.5-5.1); SODIUM 137 MMOL/L (135-145); TOTAL CARBON DIOXIDE 23.8 MMOL/L (24-32); TRIGLYCERIDES 207 MG/DL (20-135); eCRCL 36 ML/MIN; eGFR 24 ML/MIN
[2024-12-28 04:28] LABS: GLUCOSE 157 MG/DL (70-104)
[2024-12-28 04:29] LABS: ANISOCYTOSIS 1+; PLATELET ESTIMATE NORMAL; POIKILOCYTOSIS FEW
[2024-12-28] MEDS: azithromycin 250mg tablet PO SCH (08:00)
[2024-12-28] MEDS: azithromycin/NS 500mg/250ml 250 ML IV SCH (09:12)
[2024-12-28 12:44] LABS: ABG BASE EXCESS -3.6 mmol/L (-2.0-3.0); ABG HCO3 23.1 mmol/L (21.0-28.0); ABG OXYGEN SATURATION 94.6 % (94.0-98.0); ABG PCO2 (T) 47.2 mmHg (35.0-48.0); ABG PH (T) 7.303 (7.350-7.450); ABG PO2 (T) 82.4 mmHg (83.0-108.0); ALLEN'S TEST POSITIVE; FCOHb 0.3 % (0.5-1.5); FHHb 5.4 % (0.0-5.0); FMetHb 0.2 % (0.0-1.5); FO2Hb 94.1 % (94.0-98.0); MODE VENT - AC/PRVC; PATIENT TEMPERATURE 36.4; PEEP 7 cm H2O; RESPIRATORY RATE 12 b/min; TIDAL VOLUME 525 mL; TOTAL HEMOGLOBIN 11.3 G/dl (13.5-17.5)
[2024-12-28] MEDS: heparin, porcine 5000 units/ml vial SQ SCH (16:16)
[2024-12-28] MEDS ORDERED: UNABLE TO OBTAIN (17:22)
[2024-12-28] MEDS ORDERED: acetaminophen 325mg tablet OGT PRN ×2 (17:23)
[2024-12-28] MEDS: carvedilol 6.25mg tablet OGT SCH (19:50)
[2024-12-29] VITALS (11 sets, daily range): BP systolic 100–146; BP diastolic 65–85; PULSE 83–108; RESP 12–22; O2SAT 91–98
[2024-12-29 02:19] LABS: BASOPHILS % (AUTO) 0.1 % (0-1); EOSINOPHILS % (AUTO) 0 % (0-6); HEMATOCRIT 34.3 % (42.0-52.0); HEMOGLOBIN 10.6 g/dl (14.0-17.9); LYMPHOCYTES # (AUTO) 0.3 X10'3 (1.1-4.8); LYMPHOCYTES % (AUTO) 4.6 % (21-51); MEAN CORPUSCULAR HEMOGLOBIN 26.5 PG (27.0-31.0); MEAN CORPUSCULAR HGB CONC 30.8 g/dL (33.0-36.5); MEAN CORPUSCULAR VOLUME 85.9 FL (78-98); MEAN PLATELET VOLUME 8.6 FL (7.4-10.4); MONOCYTES # (AUTO) 0.6 X10'3 (0-0.9); MONOCYTES % (AUTO) 8.4 % (2-12); NEUTROPHILS # (AUTO) 6.5 X10'3 (1.8-7.7); NEUTROPHILS % (AUTO) 86.9 % (42-75); PLATELET COUNT 243 X10'3 (140-440); RED CELL DISTRIBUTION WIDTH 18.6 % (11.5-14.5); WHITE BLOOD COUNT 7.4 X10'3 (4.5-11.0)
[2024-12-29 02:26] LABS: ALBUMIN 2.1 G/DL (3.4-5.0); ANION GAP 6 (8-16); BLOOD UREA NITROGEN 56 MG/DL (7-18); BUN/CREATININE RATIO 20.9 (10.0-20.0); CALCIUM 7.9 MG/DL (8.5-10.1); CHLORIDE 105 MMOL/L (99-107); CREATININE 2.68 MG/DL (0.60-1.10); GLUCOSE 141 MG/DL (70-104); POTASSIUM 4.8 MMOL/L (3.5-5.1); SODIUM 137 MMOL/L (135-145); TOTAL CARBON DIOXIDE 26.5 MMOL/L (24-32); eCRCL 36 ML/MIN; eGFR 24 ML/MIN
[2024-12-29] MEDS: CefTRIAXone 2gm/D5W 50ml BAG 50 ML IV SCH (03:04)
[2024-12-29 06:39] LABS: ABG BASE EXCESS -3.1 mmol/L (-2.0-3.0); ABG HCO3 25.3 mmol/L (21.0-28.0); ABG OXYGEN SATURATION 93.9 % (94.0-98.0); ABG PCO2 (T) 59.6 mmHg (35.0-48.0); ABG PH (T) 7.241 (7.350-7.450); ALLEN'S TEST Modified; FCOHb 0.1 % (0.5-1.5); FHHb 6.1 % (0.0-5.0); FMetHb 0.2 % (0.0-1.5); FO2Hb 93.6 % (94.0-98.0); MODE vent- ac prvc; PATIENT TEMPERATURE 36.2; PEEP 7 cm H2O; RESPIRATORY RATE 12 b/min; TIDAL VOLUME 525 mL; TOTAL HEMOGLOBIN 11.6 G/dl (13.5-17.5)
[2024-12-29] MEDS: heparin 10,000 units/1 ML INJ IV ONE (13:20)
[2024-12-29] MEDS: heparin 25,000 UNIT/250ml bag 250 ML IV PRN (13:21)
[2024-12-29 13:37] LABS: INR 1.1 INR; PROTHROMBIN TIME 11.7 SECONDS (9.0-12.0)
[2024-12-29 20:43] LABS: ABG BASE EXCESS -0.8 mmol/L (-2.0-3.0); ABG HCO3 26.4 mmol/L (21.0-28.0); ABG OXYGEN SATURATION 92.6 % (94.0-98.0); ABG PCO2 (T) 55.6 mmHg (35.0-48.0); ABG PH (T) 7.294 (7.350-7.450); ABG PO2 (T) 71.1 mmHg (83.0-108.0); ALLEN'S TEST Modified; FCOHb 0.1 % (0.5-1.5); FHHb 7.4 % (0.0-5.0); FMetHb 0.1 % (0.0-1.5); FO2Hb 92.4 % (94.0-98.0); MODE vent- cpap; PATIENT TEMPERATURE 36.9; PEEP 7 cm H2O; TOTAL HEMOGLOBIN 11.7 G/dl (13.5-17.5)
[2024-12-30] VITALS (19 sets, daily range): BP systolic 72–129; BP diastolic 29–81; PULSE 82–108; RESP 16–22; O2SAT 92–99
[2024-12-30 02:19] LABS: BASOPHILS % (AUTO) 0.4 % (0-1); EOSINOPHILS % (AUTO) 0.3 % (0-6); HEMATOCRIT 33.4 % (42.0-52.0); HEMOGLOBIN 10.1 g/dl (14.0-17.9); LYMPHOCYTES # (AUTO) 0.6 X10'3 (1.1-4.8); LYMPHOCYTES % (AUTO) 12.9 % (21-51); MEAN CORPUSCULAR HGB CONC 30.3 g/dL (33.0-36.5); MEAN CORPUSCULAR VOLUME 85.7 FL (78-98); MEAN PLATELET VOLUME 8.4 FL (7.4-10.4); MONOCYTES # (AUTO) 0.5 X10'3 (0-0.9); MONOCYTES % (AUTO) 10.4 % (2-12); NEUTROPHILS # (AUTO) 3.7 X10'3 (1.8-7.7); PLATELET COUNT 199 X10'3 (140-440); RED CELL DISTRIBUTION WIDTH 19.3 % (11.5-14.5); WHITE BLOOD COUNT 4.9 X10'3 (4.5-11.0)
[2024-12-30 02:37] LABS: ALBUMIN 1.8 G/DL (3.4-5.0); ANION GAP 3 (8-16); BLOOD UREA NITROGEN 58 MG/DL (7-18); BUN/CREATININE RATIO 25.6 (10.0-20.0); CALCIUM 7.6 MG/DL (8.5-10.1); CHLORIDE 108 MMOL/L (99-107); CREATININE 2.27 MG/DL (0.60-1.10); GLUCOSE 99 MG/DL (70-104); SODIUM 140 MMOL/L (135-145); TOTAL CARBON DIOXIDE 28.8 MMOL/L (24-32); eCRCL 42 ML/MIN; eGFR 29 ML/MIN
[2024-12-30] MEDS: heparin 10,000 units/1 ML INJ IV PRN (02:56)
[2024-12-30] MEDS: MESSAGE TO NURSING IV ONE ×2 (03:35→10:05)
[2024-12-30] MEDS: furosemide 20 MG/2 ML vial IV ONE (03:44)
[2024-12-30 05:15] LABS: ABG BASE EXCESS 0.6 mmol/L (-2.0-3.0); ABG HCO3 26.6 mmol/L (21.0-28.0); ABG OXYGEN SATURATION 92.3 % (94.0-98.0); ABG PCO2 (T) 48.7 mmHg (35.0-48.0); ABG PH (T) 7.355 (7.350-7.450); ABG PO2 (T) 68.6 mmHg (83.0-108.0); ALLEN'S TEST Modified; FHHb 7.7 % (0.0-5.0); FO2Hb 92.3 % (94.0-98.0); PATIENT TEMPERATURE 36.9; PEEP 7 cm H2O; RESPIRATORY RATE 20 b/min; TIDAL VOLUME 525 mL; TOTAL HEMOGLOBIN 11.5 G/dl (13.5-17.5)
[2024-12-31] VITALS (32 sets, daily range): BP systolic 14–147; BP diastolic 44–88; PULSE 83–107; RESP 14–20; O2SAT 92–99
[2024-12-31 02:24] LABS: BASOPHILS % (AUTO) 0.8 % (0-1); EOSINOPHILS # (AUTO) 0.1 X10'3 (0-0.9); HEMATOCRIT 33.1 % (42.0-52.0); HEMOGLOBIN 10.2 g/dl (14.0-17.9); LYMPHOCYTES # (AUTO) 0.8 X10'3 (1.1-4.8); LYMPHOCYTES % (AUTO) 22.2 % (21-51); MEAN CORPUSCULAR HGB CONC 30.7 g/dL (33.0-36.5); MEAN CORPUSCULAR VOLUME 84.8 FL (78-98); MEAN PLATELET VOLUME 8.2 FL (7.4-10.4); MONOCYTES # (AUTO) 0.4 X10'3 (0-0.9); MONOCYTES % (AUTO) 11.8 % (2-12); NEUTROPHILS # (AUTO) 2.3 X10'3 (1.8-7.7); NEUTROPHILS % (AUTO) 63.2 % (42-75); PLATELET COUNT 165 X10'3 (140-440); WHITE BLOOD COUNT 3.6 X10'3 (4.5-11.0)
[2024-12-31] MEDS: propofol 1000mg/100ml bottle 100 ML IV PRN (02:31)
[2024-12-31 02:44] LABS: ALBUMIN 1.8 G/DL (3.4-5.0); ANION GAP 3 (8-16); BLOOD UREA NITROGEN 55 MG/DL (7-18); BUN/CREATININE RATIO 30.1 (10.0-20.0); CALCIUM 7.8 MG/DL (8.5-10.1); CHLORIDE 110 MMOL/L (99-107); CREATININE 1.83 MG/DL (0.60-1.10); GLUCOSE 94 MG/DL (70-104); POTASSIUM 4.3 MMOL/L (3.5-5.1); PREALBUMIN 15.2 MG/DL (19-36); SODIUM 144 MMOL/L (135-145); TOTAL CARBON DIOXIDE 31.5 MMOL/L (24-32); eCRCL 52 ML/MIN; eGFR 38 ML/MIN
[2024-12-31] MEDS: MESSAGE TO NURSING IV ONE ×4 (03:24→23:10)
[2024-12-31 05:20] LABS: ABG BASE EXCESS 2.6 mmol/L (-2.0-3.0); ABG OXYGEN SATURATION 96.8 % (94.0-98.0); ABG PCO2 (T) 41.8 mmHg (35.0-48.0); ABG PO2 (T) 84.6 mmHg (83.0-108.0); ALLEN'S TEST Modified; FCOHb 0.1 % (0.5-1.5); FHHb 3.2 % (0.0-5.0); FMetHb 0.3 % (0.0-1.5); FO2Hb 96.4 % (94.0-98.0); MODE vent- ac prvc; PATIENT TEMPERATURE 37.2; PEEP 7 cm H2O; RESPIRATORY RATE 20 b/min; TIDAL VOLUME 525 mL; TOTAL HEMOGLOBIN 11.2 G/dl (13.5-17.5)
[2024-12-31] MEDS: povidone-iodine 120ml topical solution TP SCH (19:58)
[2025-01-01] VITALS (36 sets, daily range): BP systolic 85–124; BP diastolic 49–72; PULSE 80–97; RESP 10–19; O2SAT 89–100
[2025-01-01 02:30] LABS: BASOPHILS % (AUTO) 0.5 % (0-1); EOSINOPHILS # (AUTO) 0.2 X10'3 (0-0.9); EOSINOPHILS % (AUTO) 3.9 % (0-6); HEMATOCRIT 32.6 % (42.0-52.0); LYMPHOCYTES # (AUTO) 0.8 X10'3 (1.1-4.8); LYMPHOCYTES % (AUTO) 18.3 % (21-51); MEAN CORPUSCULAR HEMOGLOBIN 26.1 PG (27.0-31.0); MEAN CORPUSCULAR HGB CONC 30.7 g/dL (33.0-36.5); MEAN CORPUSCULAR VOLUME 85.2 FL (78-98); MEAN PLATELET VOLUME 8.1 FL (7.4-10.4); MONOCYTES # (AUTO) 0.4 X10'3 (0-0.9); MONOCYTES % (AUTO) 9.7 % (2-12); NEUTROPHILS # (AUTO) 2.9 X10'3 (1.8-7.7); NEUTROPHILS % (AUTO) 67.6 % (42-75); PLATELET COUNT 156 X10'3 (140-440); RED BLOOD COUNT 3.83 X10'6 (4.70-6.10); RED CELL DISTRIBUTION WIDTH 19.2 % (11.5-14.5); WHITE BLOOD COUNT 4.3 X10'3 (4.5-11.0)
[2025-01-01 02:42] LABS: ALBUMIN 1.8 G/DL (3.4-5.0); ANION GAP 1 (8-16); BLOOD UREA NITROGEN 48 MG/DL (7-18); CALCIUM 8.2 MG/DL (8.5-10.1); CHLORIDE 110 MMOL/L (99-107); GLUCOSE 91 MG/DL (70-104); POTASSIUM 4.6 MMOL/L (3.5-5.1); SODIUM 144 MMOL/L (135-145); TOTAL CARBON DIOXIDE 33.1 MMOL/L (24-32); eCRCL 64 ML/MIN; eGFR 47 ML/MIN
[2025-01-01 05:05] LABS: ABG BASE EXCESS -3.8 mmol/L (-2.0-3.0); ABG HCO3 20.3 mmol/L (21.0-28.0); ABG PCO2 (T) 32.5 mmHg (35.0-48.0); ABG PH (T) 7.411 (7.350-7.450); ABG PO2 (T) 79.8 mmHg (83.0-108.0); ALLEN'S TEST Modified; FCOHb 0.3 % (0.5-1.5); FMetHb 0.3 % (0.0-1.5); FO2Hb 95.4 % (94.0-98.0); MODE PRVC; PATIENT TEMPERATURE 36.5; PEEP 7 cm H2O; RESPIRATORY RATE 12 b/min; TIDAL VOLUME 525 mL; TOTAL HEMOGLOBIN 9.4 G/dl (13.5-17.5)
[2025-01-01] MEDS ORDERED: enoxaparin 40mg/0.4ml syringe SQ SCH (11:49)
[2025-01-01] MEDS: sennosides/docusate sodium tablet PO SCH (12:18)
[2025-01-01] MEDS: metolazone 2.5mg tablet PO SCH (12:19)
[2025-01-01] MEDS: furosemide 40mg/4ml inj IV SCH (12:23)
[2025-01-01] MEDS ORDERED: MULT-1074 PO (16:03)
[2025-01-02] VITALS (36 sets, daily range): BP systolic 86–134; BP diastolic 49–81; PULSE 80–125; RESP 12–26; O2SAT 84–96
[2025-01-02 02:48] LABS: BASOPHILS % (AUTO) 0.9 % (0-1); EOSINOPHILS # (AUTO) 0.3 X10'3 (0-0.9); EOSINOPHILS % (AUTO) 5.3 % (0-6); HEMATOCRIT 32.9 % (42.0-52.0); HEMOGLOBIN 10.2 g/dl (14.0-17.9); LYMPHOCYTES # (AUTO) 0.7 X10'3 (1.1-4.8); LYMPHOCYTES % (AUTO) 15.2 % (21-51); MEAN CORPUSCULAR HEMOGLOBIN 26.1 PG (27.0-31.0); MEAN CORPUSCULAR VOLUME 84.2 FL (78-98); MEAN PLATELET VOLUME 8.1 FL (7.4-10.4); MONOCYTES # (AUTO) 0.4 X10'3 (0-0.9); NEUTROPHILS # (AUTO) 3.5 X10'3 (1.8-7.7); NEUTROPHILS % (AUTO) 70.6 % (42-75); PLATELET COUNT 184 X10'3 (140-440); RED CELL DISTRIBUTION WIDTH 18.9 % (11.5-14.5); WHITE BLOOD COUNT 4.9 X10'3 (4.5-11.0)
[2025-01-02 03:04] LABS: ALANINE AMINOTRANSFERASE 35 U/L (12-78); ALBUMIN 1.9 G/DL (3.4-5.0); ALBUMIN/GLOBULIN RATIO 0.4 (1.1-1.5); ALKALINE PHOSPHATASE 63 IU/L (46-116); ANION GAP 0 (8-16); ASPARTATE AMINO TRANSFERASE 29 U/L (10-37); BILIRUBIN,TOTAL 0.6 MG/DL (0.1-1.0); BLOOD UREA NITROGEN 48 MG/DL (7-18); CALCIUM 8.7 MG/DL (8.5-10.1); CHLORIDE 107 MMOL/L (99-107); GLUCOSE 83 MG/DL (70-104); MAGNESIUM 1.5 MG/DL (1.5-2.4); PHOSPHORUS 3.3 MG/DL (2.3-4.5); POTASSIUM 4.5 MMOL/L (3.5-5.1); SODIUM 143 MMOL/L (135-145); TOTAL CARBON DIOXIDE 35.7 MMOL/L (24-32); TOTAL PROTEIN 6.5 G/DL (6.4-8.2); eCRCL 62 ML/MIN; eGFR 47 ML/MIN
[2025-01-02 04:39] LABS: ABG BASE EXCESS 7.2 mmol/L (-2.0-3.0); ABG HCO3 33.5 mmol/L (21.0-28.0); ABG OXYGEN SATURATION 91.1 % (94.0-98.0); ABG PCO2 (T) 55.8 mmHg (35.0-48.0); ABG PH (T) 7.395 (7.350-7.450); ABG PO2 (T) 60.3 mmHg (83.0-108.0); ALLEN'S TEST Modified; FHHb 8.8 % (0.0-5.0); FO2Hb 90.2 % (94.0-98.0); MODE vent- ac prvc; PATIENT TEMPERATURE 36.8; PEEP 7 cm H2O; RESPIRATORY RATE 12 b/min; TIDAL VOLUME 525 mL; TOTAL HEMOGLOBIN 10.7 G/dl (13.5-17.5)
[2025-01-02] MEDS: enoxaparin 40mg/0.4ml syringe SQ SCH (08:12)
[2025-01-02] MEDS: metolazone 2.5mg tablet OGT SCH (09:31)
[2025-01-02] MEDS: COMMUNICATION ORDER 1 EA MISC MC ONE (12:00)
[2025-01-02] MEDS: metoprolol tartrate 25mg tablet OGT SCH (12:59)
[2025-01-02 20:23] LABS: ALBUMIN 1.8 G/DL (3.4-5.0); ANION GAP 2 (8-16); BLOOD UREA NITROGEN 53 MG/DL (7-18); BUN/CREATININE RATIO 32.7 (10.0-20.0); CALCIUM 8.6 MG/DL (8.5-10.1); CHLORIDE 105 MMOL/L (99-107); CREATININE 1.62 MG/DL (0.60-1.10); GLUCOSE 90 MG/DL (70-104); MAGNESIUM 1.5 MG/DL (1.5-2.4); PHOSPHORUS 3.2 MG/DL (2.3-4.5); POTASSIUM 4.1 MMOL/L (3.5-5.1); SODIUM 146 MMOL/L (135-145); TOTAL CARBON DIOXIDE 39.5 MMOL/L (24-32); eCRCL 57 ML/MIN; eGFR 43 ML/MIN
[2025-01-02] MEDS: apixaban 5mg tablet OGT SCH (20:38)
[2025-01-03] VITALS (30 sets, daily range): BP systolic 86–154; BP diastolic 49–98; PULSE 78–125; RESP 12–21; O2SAT 90–96
[2025-01-03 02:40] LABS: BASOPHILS % (AUTO) 0.5 % (0-1); EOSINOPHILS # (AUTO) 0.2 X10'3 (0-0.9); EOSINOPHILS % (AUTO) 4.7 % (0-6); HEMATOCRIT 28.5 % (42.0-52.0); HEMOGLOBIN 8.8 g/dl (14.0-17.9); LYMPHOCYTES # (AUTO) 0.7 X10'3 (1.1-4.8); LYMPHOCYTES % (AUTO) 14.7 % (21-51); MEAN CORPUSCULAR HEMOGLOBIN 25.8 PG (27.0-31.0); MEAN CORPUSCULAR VOLUME 83.2 FL (78-98); MEAN PLATELET VOLUME 7.7 FL (7.4-10.4); MONOCYTES # (AUTO) 0.5 X10'3 (0-0.9); MONOCYTES % (AUTO) 10.2 % (2-12); NEUTROPHILS # (AUTO) 3.5 X10'3 (1.8-7.7); NEUTROPHILS % (AUTO) 69.9 % (42-75); PLATELET COUNT 188 X10'3 (140-440); RED BLOOD COUNT 3.42 X10'6 (4.70-6.10); RED CELL DISTRIBUTION WIDTH 18.7 % (11.5-14.5); WHITE BLOOD COUNT 5.1 X10'3 (4.5-11.0)
[2025-01-03 02:55] LABS: ALANINE AMINOTRANSFERASE 29 U/L (12-78); ALBUMIN 1.6 G/DL (3.4-5.0); ALBUMIN/GLOBULIN RATIO 0.4 (1.1-1.5); ALKALINE PHOSPHATASE 63 IU/L (46-116); ANION GAP 2 (8-16); ASPARTATE AMINO TRANSFERASE 23 U/L (10-37); BILIRUBIN,TOTAL 0.5 MG/DL (0.1-1.0); BLOOD UREA NITROGEN 51 MG/DL (7-18); BUN/CREATININE RATIO 38.6 (10.0-20.0); CALCIUM 7.6 MG/DL (8.5-10.1); CHLORIDE 107 MMOL/L (99-107); CREATININE 1.32 MG/DL (0.60-1.10); GLUCOSE 84 MG/DL (70-104); MAGNESIUM 1.3 MG/DL (1.5-2.4); PHOSPHORUS 2.9 MG/DL (2.3-4.5); POTASSIUM 3.3 MMOL/L (3.5-5.1); PREALBUMIN 14.9 MG/DL (19-36); SODIUM 146 MMOL/L (135-145); TOTAL PROTEIN 5.9 G/DL (6.4-8.2); eCRCL 70 ML/MIN; eGFR 55 ML/MIN
[2025-01-03 04:38] LABS: ABG HCO3 37.7 mmol/L (21.0-28.0); ABG OXYGEN SATURATION 91.1 % (94.0-98.0); ABG PH (T) 7.453 (7.350-7.450); ALLEN'S TEST POSITIVE; FCOHb 0.3 % (0.5-1.5); FHHb 8.8 % (0.0-5.0); FMetHb 0.3 % (0.0-1.5); FO2Hb 90.6 % (94.0-98.0); MODE VENT - AC; PATIENT TEMPERATURE 37.1; PEEP 7 cm H2O; RESPIRATORY RATE 12 b/min; TIDAL VOLUME 525 mL; TOTAL HEMOGLOBIN 11.1 G/dl (13.5-17.5)
[2025-01-03] MEDS: magnesium sulf-water 4G/100mL 100 ML IV PRN (04:46)
[2025-01-03] MEDS: potassium Cl 40MEQ/270ML bag 270 ML IV PRN (04:46)
[2025-01-03] MEDS: ipratropium 0.5 MG/2.5ML nebule IH PRN (07:57)
[2025-01-03] MEDS: albuterol 2.5 MG/3 ML nebule NEB PRN (07:57)
[2025-01-03] MEDS: sennosides/docusate sodium tablet OGT SCH (08:00)
[2025-01-03] MEDS: magnesium sulf-water 2g/50mL 50 ML IV PRN (09:35)
[2025-01-03] MEDS ORDERED: fentaNYL/PF 50MCG/1 ML 2ML syringe IV PRN (11:15)
[2025-01-03] MEDS: NORepinephrine 8mg/ 250ml NS 250 ML IV PRN (19:34)
[2025-01-03] MEDS: propofol 1000mg/100ml bottle 100 ML IV PRN (23:20)
[2025-01-04] VITALS (38 sets, daily range): BP systolic 86–132; BP diastolic 53–85; PULSE 75–122; RESP 10–25; O2SAT 86–98
[2025-01-04 02:36] LABS: BASOPHILS % (AUTO) 1.1 % (0-1); EOSINOPHILS # (AUTO) 0.2 X10'3 (0-0.9); EOSINOPHILS % (AUTO) 5.6 % (0-6); HEMATOCRIT 31.1 % (42.0-52.0); HEMOGLOBIN 9.9 g/dl (14.0-17.9); LYMPHOCYTES # (AUTO) 0.8 X10'3 (1.1-4.8); LYMPHOCYTES % (AUTO) 20.1 % (21-51); MEAN CORPUSCULAR HEMOGLOBIN 26.1 PG (27.0-31.0); MEAN CORPUSCULAR HGB CONC 31.8 g/dL (33.0-36.5); MEAN PLATELET VOLUME 7.6 FL (7.4-10.4); MONOCYTES # (AUTO) 0.5 X10'3 (0-0.9); MONOCYTES % (AUTO) 10.8 % (2-12); NEUTROPHILS # (AUTO) 2.6 X10'3 (1.8-7.7); NEUTROPHILS % (AUTO) 62.4 % (42-75); PLATELET COUNT 244 X10'3 (140-440); RED BLOOD COUNT 3.79 X10'6 (4.70-6.10); RED CELL DISTRIBUTION WIDTH 18.9 % (11.5-14.5); WHITE BLOOD COUNT 4.2 X10'3 (4.5-11.0)
[2025-01-04 02:44] LABS: ALANINE AMINOTRANSFERASE 30 U/L (12-78); ALBUMIN 2.1 G/DL (3.4-5.0); ALBUMIN/GLOBULIN RATIO 0.4 (1.1-1.5); ALKALINE PHOSPHATASE 78 IU/L (46-116); ANION GAP -1 (8-16); ASPARTATE AMINO TRANSFERASE 21 U/L (10-37); BILIRUBIN,TOTAL 0.5 MG/DL (0.1-1.0); BLOOD UREA NITROGEN 70 MG/DL (7-18); BUN/CREATININE RATIO 36.6 (10.0-20.0); CHLORIDE 99 MMOL/L (99-107); CREATININE 1.91 MG/DL (0.60-1.10); GLUCOSE 116 MG/DL (70-104); MAGNESIUM 2.5 MG/DL (1.5-2.4); PHOSPHORUS 5.1 MG/DL (2.3-4.5); POTASSIUM 3.9 MMOL/L (3.5-5.1); SODIUM 142 MMOL/L (135-145); TOTAL PROTEIN 7.4 G/DL (6.4-8.2); TRIGLYCERIDES 126 MG/DL (20-135); eCRCL 49 ML/MIN; eGFR 36 ML/MIN
[2025-01-04 03:15] LABS: TOTAL CARBON DIOXIDE 44.4 MMOL/L (24-32)
[2025-01-04] MEDS: dexmedetomidin/NS 400mcg/100ml 100 ML IV SCH (11:46)
[2025-01-04 12:55] LABS: ABG PH (T) 7.407 (7.350-7.450); ALLEN'S TEST MODIFIED; PATIENT TEMPERATURE 36.4
[2025-01-04 12:56] LABS: ABG BASE EXCESS 13.5 mmol/L (-2.0-3.0); ABG HCO3 40.9 mmol/L (21.0-28.0); ABG OXYGEN SATURATION 93.6 % (94.0-98.0); ABG PO2 (T) 70.2 mmHg (83.0-108.0); FCOHb 0.5 % (0.5-1.5); FO2Hb 93.1 % (94.0-98.0); TOTAL HEMOGLOBIN 11.3 G/dl (13.5-17.5)
[2025-01-04 12:57] LABS: FHHb 6.4 % (0.0-5.0)
[2025-01-04 14:18] LABS: ABG BASE EXCESS 16.5 mmol/L (-2.0-3.0); ABG HCO3 42.5 mmol/L (21.0-28.0); ABG OXYGEN SATURATION 87.7 % (94.0-98.0); ABG PCO2 (T) 58.4 mmHg (35.0-48.0); ABG PH (T) 7.481 (7.350-7.450); ABG PO2 (T) 55.1 mmHg (83.0-108.0); ALLEN'S TEST POSITIVE; FHHb 12.1 % (0.0-5.0); FMetHb 0.3 % (0.0-1.5); FO2Hb 86.6 % (94.0-98.0); MODE HIGH FLOW; PATIENT TEMPERATURE 37.3; TOTAL HEMOGLOBIN 12.2 G/dl (13.5-17.5)
[2025-01-04] MEDS: haloperidol lactate 5mg/ml inj IM STA (15:28)
[2025-01-05] VITALS (30 sets, daily range): BP systolic 81–118; BP diastolic 45–84; PULSE 69–95; RESP 12–22; O2SAT 88–97
[2025-01-05 03:23] LABS: BASOPHILS # (AUTO) 0.1 X10'3 (0-0.2); EOSINOPHILS # (AUTO) 0.2 X10'3 (0-0.9); EOSINOPHILS % (AUTO) 3.2 % (0-6); HEMATOCRIT 36.7 % (42.0-52.0); HEMOGLOBIN 11.7 g/dl (14.0-17.9); LYMPHOCYTES # (AUTO) 0.9 X10'3 (1.1-4.8); LYMPHOCYTES % (AUTO) 16.2 % (21-51); MEAN CORPUSCULAR HEMOGLOBIN 26.2 PG (27.0-31.0); MEAN CORPUSCULAR HGB CONC 31.8 g/dL (33.0-36.5); MEAN CORPUSCULAR VOLUME 82.5 FL (78-98); MEAN PLATELET VOLUME 7.8 FL (7.4-10.4); MONOCYTES % (AUTO) 17.3 % (2-12); NEUTROPHILS # (AUTO) 3.4 X10'3 (1.8-7.7); NEUTROPHILS % (AUTO) 62.3 % (42-75); PLATELET COUNT 303 X10'3 (140-440); RED BLOOD COUNT 4.45 X10'6 (4.70-6.10); RED CELL DISTRIBUTION WIDTH 18.9 % (11.5-14.5); WHITE BLOOD COUNT 5.5 X10'3 (4.5-11.0)
[2025-01-05 03:48] LABS: ALANINE AMINOTRANSFERASE 27 U/L (12-78); ALBUMIN 2.5 G/DL (3.4-5.0); ALBUMIN/GLOBULIN RATIO 0.4 (1.1-1.5); ALKALINE PHOSPHATASE 86 IU/L (46-116); ASPARTATE AMINO TRANSFERASE 19 U/L (10-37); BILIRUBIN,TOTAL 0.9 MG/DL (0.1-1.0); BLOOD UREA NITROGEN 73 MG/DL (7-18); BUN/CREATININE RATIO 37.1 (10.0-20.0); CALCIUM 10.2 MG/DL (8.5-10.1); CHLORIDE 94 MMOL/L (99-107); CREATININE 1.97 MG/DL (0.60-1.10); GLUCOSE 105 MG/DL (70-104); MAGNESIUM 2.2 MG/DL (1.5-2.4); POTASSIUM 3.9 MMOL/L (3.5-5.1); SODIUM 142 MMOL/L (135-145); eCRCL 47 ML/MIN; eGFR 35 ML/MIN
[2025-01-05 03:50] LABS: ANION GAP 2 (8-16)
[2025-01-05 04:05] LABS: TOTAL CARBON DIOXIDE 46.2 MMOL/L (24-32)
[2025-01-05 04:18] LABS: TOTAL CELLS COUNTED 100
[2025-01-05 04:19] LABS: ANISOCYTOSIS 2+; PLATELET ESTIMATE NORMAL
[2025-01-05] MEDS ORDERED: acetaminophen 325mg tablet PO PRN (19:51)
[2025-01-05 19:55] LABS: ALBUMIN 2.4 G/DL (3.4-5.0); ANION GAP 2 (8-16); BLOOD UREA NITROGEN 83 MG/DL (7-18); BUN/CREATININE RATIO 35.6 (10.0-20.0); CALCIUM 9.4 MG/DL (8.5-10.1); CHLORIDE 93 MMOL/L (99-107); CREATININE 2.33 MG/DL (0.60-1.10); GLUCOSE 114 MG/DL (70-104); MAGNESIUM 2.2 MG/DL (1.5-2.4); POTASSIUM 3.3 MMOL/L (3.5-5.1); SODIUM 139 MMOL/L (135-145); eCRCL 40 ML/MIN; eGFR 28 ML/MIN
[2025-01-05 19:56] LABS: TOTAL CARBON DIOXIDE 43.9 MMOL/L (24-32)
[2025-01-05] MEDS: metoprolol tartrate 25mg tablet PO SCH (20:00)
[2025-01-05] MEDS: metolazone 2.5mg tablet PO SCH (20:23)
[2025-01-05] MEDS: povidone-iodine 120ml topical solution TP SCH (20:24)
[2025-01-05] MEDS: apixaban 5mg tablet PO SCH (20:24)
[2025-01-06] VITALS (33 sets, daily range): BP systolic 84–124; BP diastolic 51–82; PULSE 92–124; RESP 13–27; O2SAT 83–98
[2025-01-06 02:28] LABS: BASOPHILS # (AUTO) 0.1 X10'3 (0-0.2); BASOPHILS % (AUTO) 1.1 % (0-1); EOSINOPHILS # (AUTO) 0.2 X10'3 (0-0.9); EOSINOPHILS % (AUTO) 2.7 % (0-6); HEMATOCRIT 37.8 % (42.0-52.0); HEMOGLOBIN 11.9 g/dl (14.0-17.9); LYMPHOCYTES # (AUTO) 0.9 X10'3 (1.1-4.8); LYMPHOCYTES % (AUTO) 14.6 % (21-51); MEAN CORPUSCULAR HGB CONC 31.5 g/dL (33.0-36.5); MEAN CORPUSCULAR VOLUME 82.3 FL (78-98); MEAN PLATELET VOLUME 7.8 FL (7.4-10.4); MONOCYTES # (AUTO) 0.8 X10'3 (0-0.9); MONOCYTES % (AUTO) 13.4 % (2-12); NEUTROPHILS # (AUTO) 4.1 X10'3 (1.8-7.7); NEUTROPHILS % (AUTO) 68.2 % (42-75); PLATELET COUNT 345 X10'3 (140-440); RED BLOOD COUNT 4.59 X10'6 (4.70-6.10); RED CELL DISTRIBUTION WIDTH 18.4 % (11.5-14.5)
[2025-01-06 02:42] LABS: ALANINE AMINOTRANSFERASE 26 U/L (12-78); ALBUMIN 2.4 G/DL (3.4-5.0); ALBUMIN/GLOBULIN RATIO 0.4 (1.1-1.5); ALKALINE PHOSPHATASE 83 IU/L (46-116); ANION GAP 3 (8-16); ASPARTATE AMINO TRANSFERASE 26 U/L (10-37); BILIRUBIN,TOTAL 0.9 MG/DL (0.1-1.0); BLOOD UREA NITROGEN 83 MG/DL (7-18); BUN/CREATININE RATIO 36.2 (10.0-20.0); CALCIUM 9.7 MG/DL (8.5-10.1); CHLORIDE 94 MMOL/L (99-107); CREATININE 2.29 MG/DL (0.60-1.10); GLUCOSE 102 MG/DL (70-104); MAGNESIUM 2.9 MG/DL (1.5-2.4); PHOSPHORUS 6.1 MG/DL (2.3-4.5); POTASSIUM 3.7 MMOL/L (3.5-5.1); SODIUM 138 MMOL/L (135-145); TOTAL PROTEIN 8.8 G/DL (6.4-8.2); eCRCL 41 ML/MIN; eGFR 29 ML/MIN
[2025-01-06 02:49] LABS: TOTAL CARBON DIOXIDE 40.8 MMOL/L (24-32)
[2025-01-06] MEDS: sennosides/docusate sodium tablet PO SCH (08:00)
[2025-01-06] MEDS ORDERED: apixaban 5mg tablet PO SCH (20:00)
[2025-01-06] MEDS: carVEDilol 12.5mg tablet PO SCH (21:09)
[2025-01-06] MEDS: acetaminophen 325mg tablet PO PRN (21:11)
[2025-01-07] VITALS (16 sets, daily range): BP systolic 85–121; BP diastolic 55–77; PULSE 6–105; RESP 12–20; TEMP 96.8–98; O2SAT 88–100
[2025-01-07 02:45] LABS: BASOPHILS # (AUTO) 0.1 X10'3 (0-0.2); BASOPHILS % (AUTO) 1.6 % (0-1); EOSINOPHILS # (AUTO) 0.2 X10'3 (0-0.9); EOSINOPHILS % (AUTO) 3.1 % (0-6); HEMATOCRIT 36.6 % (42.0-52.0); HEMOGLOBIN 11.7 g/dl (14.0-17.9); LYMPHOCYTES % (AUTO) 15.5 % (21-51); MEAN CORPUSCULAR HGB CONC 31.8 g/dL (33.0-36.5); MEAN CORPUSCULAR VOLUME 81.8 FL (78-98); MEAN PLATELET VOLUME 7.4 FL (7.4-10.4); MONOCYTES # (AUTO) 0.9 X10'3 (0-0.9); MONOCYTES % (AUTO) 13.1 % (2-12); NEUTROPHILS # (AUTO) 4.3 X10'3 (1.8-7.7); NEUTROPHILS % (AUTO) 66.7 % (42-75); PLATELET COUNT 385 X10'3 (140-440); RED BLOOD COUNT 4.48 X10'6 (4.70-6.10); RED CELL DISTRIBUTION WIDTH 18.3 % (11.5-14.5); WHITE BLOOD COUNT 6.5 X10'3 (4.5-11.0)
[2025-01-07 03:01] LABS: ALANINE AMINOTRANSFERASE 34 U/L (12-78); ALBUMIN 2.6 G/DL (3.4-5.0); ALBUMIN/GLOBULIN RATIO 0.4 (1.1-1.5); ALKALINE PHOSPHATASE 92 IU/L (46-116); ANION GAP 3 (8-16); ASPARTATE AMINO TRANSFERASE 33 U/L (10-37); BILIRUBIN,TOTAL 0.9 MG/DL (0.1-1.0); BLOOD UREA NITROGEN 94 MG/DL (7-18); BUN/CREATININE RATIO 37.9 (10.0-20.0); CALCIUM 9.6 MG/DL (8.5-10.1); CHLORIDE 92 MMOL/L (99-107); CREATININE 2.48 MG/DL (0.60-1.10); GLUCOSE 100 MG/DL (70-104); MAGNESIUM 2.2 MG/DL (1.5-2.4); PHOSPHORUS 5.5 MG/DL (2.3-4.5); POTASSIUM 3.8 MMOL/L (3.5-5.1); SODIUM 136 MMOL/L (135-145); TOTAL PROTEIN 8.8 G/DL (6.4-8.2); eCRCL 37 ML/MIN; eGFR 26 ML/MIN
[2025-01-07] MEDS ORDERED: aminophylline 500mg/20ml vial IV PRN (13:30)
[2025-01-07] MEDS: metoprolol tartrate 25mg tablet PO SCH (13:30)
[2025-01-07] MEDS ORDERED: metoprolol tartrate 1mg/ml inj IV PRN (13:30)
[2025-01-07] MEDS ORDERED: nitroGLYCERIN 0.4mg SUBLingual tab SL PRN (13:30)
[2025-01-07] MEDS: furosemide 40mg/4ml inj IV SCH (13:50)
[2025-01-07 14:56] LABS: PRO BRAIN NATRIURETIC PEPTIDE 4337 PG/ML (0-125)
[2025-01-07] MEDS: normal saline 500ml IV soln 500 ML IV ONE (19:31)
[2025-01-08] VITALS (22 sets, daily range): BP systolic 77–125; BP diastolic 49–80; PULSE 65–113; RESP 14–22; TEMP 96.7–98.1; O2SAT 20–100
[2025-01-08 03:16] LABS: BASOPHILS # (AUTO) 0.1 X10'3 (0-0.2); BASOPHILS % (AUTO) 1.5 % (0-1); EOSINOPHILS # (AUTO) 0.2 X10'3 (0-0.9); EOSINOPHILS % (AUTO) 3.6 % (0-6); HEMATOCRIT 36.4 % (42.0-52.0); HEMOGLOBIN 11.5 g/dl (14.0-17.9); LYMPHOCYTES # (AUTO) 1.1 X10'3 (1.1-4.8); LYMPHOCYTES % (AUTO) 16.5 % (21-51); MEAN CORPUSCULAR HEMOGLOBIN 25.8 PG (27.0-31.0); MEAN CORPUSCULAR HGB CONC 31.7 g/dL (33.0-36.5); MEAN CORPUSCULAR VOLUME 81.6 FL (78-98); MEAN PLATELET VOLUME 7.5 FL (7.4-10.4); MONOCYTES # (AUTO) 0.8 X10'3 (0-0.9); MONOCYTES % (AUTO) 11.7 % (2-12); NEUTROPHILS # (AUTO) 4.3 X10'3 (1.8-7.7); NEUTROPHILS % (AUTO) 66.7 % (42-75); PLATELET COUNT 388 X10'3 (140-440); RED BLOOD COUNT 4.46 X10'6 (4.70-6.10); WHITE BLOOD COUNT 6.5 X10'3 (4.5-11.0)
[2025-01-08 03:33] LABS: ALANINE AMINOTRANSFERASE 31 U/L (12-78); ALBUMIN 2.6 G/DL (3.4-5.0); ALBUMIN/GLOBULIN RATIO 0.4 (1.1-1.5); ALKALINE PHOSPHATASE 90 IU/L (46-116); ANION GAP 4 (8-16); ASPARTATE AMINO TRANSFERASE 32 U/L (10-37); BILIRUBIN,TOTAL 0.8 MG/DL (0.1-1.0); BLOOD UREA NITROGEN 96 MG/DL (7-18); BUN/CREATININE RATIO 36.9 (10.0-20.0); CALCIUM 9.5 MG/DL (8.5-10.1); CHLORIDE 95 MMOL/L (99-107); GLUCOSE 104 MG/DL (70-104); MAGNESIUM 2.2 MG/DL (1.5-2.4); PHOSPHORUS 4.7 MG/DL (2.3-4.5); POTASSIUM 3.3 MMOL/L (3.5-5.1); SODIUM 137 MMOL/L (135-145); TOTAL CARBON DIOXIDE 38.2 MMOL/L (24-32); TOTAL PROTEIN 8.5 G/DL (6.4-8.2); eCRCL 36 ML/MIN; eGFR 25 ML/MIN
[2025-01-08] MEDS: morphine 2 MG/ML inj. syringe IV ONE (10:49)
[2025-01-08] MEDS: regadenoson 0.4mg/5ml syringe IV PRN (11:33)
[2025-01-09] VITALS (14 sets, daily range): BP systolic 84–114; BP diastolic 54–80; PULSE 70–102; RESP 12–23; TEMP 97.6–98.4; O2SAT 91–99
[2025-01-09 03:24] LABS: BASOPHILS # (AUTO) 0.1 X10'3 (0-0.2); BASOPHILS % (AUTO) 1.6 % (0-1); EOSINOPHILS # (AUTO) 0.2 X10'3 (0-0.9); EOSINOPHILS % (AUTO) 3.1 % (0-6); HEMATOCRIT 35.9 % (42.0-52.0); HEMOGLOBIN 11.5 g/dl (14.0-17.9); LYMPHOCYTES # (AUTO) 1.1 X10'3 (1.1-4.8); LYMPHOCYTES % (AUTO) 17.8 % (21-51); MEAN CORPUSCULAR HEMOGLOBIN 26.3 PG (27.0-31.0); MEAN CORPUSCULAR VOLUME 82.3 FL (78-98); MEAN PLATELET VOLUME 7.5 FL (7.4-10.4); MONOCYTES # (AUTO) 0.8 X10'3 (0-0.9); MONOCYTES % (AUTO) 13.6 % (2-12); NEUTROPHILS # (AUTO) 3.9 X10'3 (1.8-7.7); NEUTROPHILS % (AUTO) 63.9 % (42-75); PLATELET COUNT 381 X10'3 (140-440); RED BLOOD COUNT 4.37 X10'6 (4.70-6.10); RED CELL DISTRIBUTION WIDTH 18.4 % (11.5-14.5); WHITE BLOOD COUNT 6.1 X10'3 (4.5-11.0)
[2025-01-09 03:43] LABS: ALANINE AMINOTRANSFERASE 43 U/L (12-78); ALBUMIN 2.9 G/DL (3.4-5.0); ALBUMIN/GLOBULIN RATIO 0.5 (1.1-1.5); ALKALINE PHOSPHATASE 92 IU/L (46-116); ANION GAP 4 (8-16); ASPARTATE AMINO TRANSFERASE 35 U/L (10-37); BILIRUBIN,TOTAL 0.8 MG/DL (0.1-1.0); BLOOD UREA NITROGEN 99 MG/DL (7-18); BUN/CREATININE RATIO 40.1 (10.0-20.0); CALCIUM 9.5 MG/DL (8.5-10.1); CHLORIDE 98 MMOL/L (99-107); CREATININE 2.47 MG/DL (0.60-1.10); GLUCOSE 107 MG/DL (70-104); MAGNESIUM 2.3 MG/DL (1.5-2.4); PHOSPHORUS 4.8 MG/DL (2.3-4.5); POTASSIUM 3.5 MMOL/L (3.5-5.1); SODIUM 141 MMOL/L (135-145); TOTAL CARBON DIOXIDE 39.3 MMOL/L (24-32); TOTAL PROTEIN 8.8 G/DL (6.4-8.2); eCRCL 38 ML/MIN; eGFR 27 ML/MIN
[2025-01-10 02:36] VITALS: PULSE 63; RESP 18; O2SAT 98
[2025-01-10 06:00] VITALS: BP 132/73; PULSE 114; RESP 18; TEMP 98; O2SAT 92
[2025-01-10 07:25] LABS: BASOPHILS # (AUTO) 0.1 X10'3 (0-0.2); BASOPHILS % (AUTO) 1.8 % (0-1); EOSINOPHILS # (AUTO) 0.2 X10'3 (0-0.9); EOSINOPHILS % (AUTO) 3.7 % (0-6); HEMATOCRIT 38.1 % (42.0-52.0); LYMPHOCYTES # (AUTO) 1.1 X10'3 (1.1-4.8); LYMPHOCYTES % (AUTO) 20.3 % (21-51); MEAN CORPUSCULAR HGB CONC 31.5 g/dL (33.0-36.5); MEAN CORPUSCULAR VOLUME 82.4 FL (78-98); MEAN PLATELET VOLUME 7.9 FL (7.4-10.4); MONOCYTES # (AUTO) 0.8 X10'3 (0-0.9); MONOCYTES % (AUTO) 14.7 % (2-12); NEUTROPHILS # (AUTO) 3.3 X10'3 (1.8-7.7); NEUTROPHILS % (AUTO) 59.5 % (42-75); PLATELET COUNT 369 X10'3 (140-440); RED BLOOD COUNT 4.62 X10'6 (4.70-6.10); RED CELL DISTRIBUTION WIDTH 18.8 % (11.5-14.5); WHITE BLOOD COUNT 5.5 X10'3 (4.5-11.0)
[2025-01-10 07:44] LABS: ALANINE AMINOTRANSFERASE 41 U/L (12-78); ALBUMIN 2.9 G/DL (3.4-5.0); ALBUMIN/GLOBULIN RATIO 0.5 (1.1-1.5); ALKALINE PHOSPHATASE 82 IU/L (46-116); ANION GAP 5 (8-16); ASPARTATE AMINO TRANSFERASE 42 U/L (10-37); BILIRUBIN,TOTAL 0.9 MG/DL (0.1-1.0); BLOOD UREA NITROGEN 97 MG/DL (7-18); CALCIUM 9.7 MG/DL (8.5-10.1); CHLORIDE 95 MMOL/L (99-107); CREATININE 2.55 MG/DL (0.60-1.10); GLUCOSE 100 MG/DL (70-104); POTASSIUM 3.3 MMOL/L (3.5-5.1); SODIUM 136 MMOL/L (135-145); TOTAL CARBON DIOXIDE 35.6 MMOL/L (24-32); TOTAL PROTEIN 8.9 G/DL (6.4-8.2); eCRCL 36 ML/MIN; eGFR 26 ML/MIN
[2025-01-10 08:00] VITALS: RESP 18; O2SAT 92
[2025-01-10 08:20] VITALS: PULSE 78; RESP 20; O2SAT 92
[2025-01-10 08:21] VITALS: PULSE 78; RESP 20; O2SAT 92
[2025-01-10 11:00] VITALS: BP 97/57; PULSE 91; RESP 23; TEMP 97.2; O2SAT 94
== END 2025-01-10 14:33 | DRG 720 ==
LOC: ER 23:52 → ED HOLD 12-27 06:26 → CICU 2S 12-30 14:24 → PCU 3S 01-07 04:08
PROVIDERS: ADMIT Internal Medicine Critical Care Medicine; ATTEND Internal Medicine Critical Care Medicine
PROC: 5A1955Z Respiratory Ventilation, Greater than 96 Consecutive Hours (ICD-10-PCS; principal; 2024-12-27)
PROC: 0BH17EZ Insertion of Endotracheal Airway into Trachea, Via Natural or Artificial Opening (ICD-10-PCS; 2024-12-27)
PROC: 02HV33Z Insertion of Infusion Device into Superior Vena Cava, Percutaneous Approach (ICD-10-PCS; 2024-12-27)
PROC: 5A09357 Assistance with Respiratory Ventilation, Less than 24 Consecutive Hours, Continuous Positive Airway Pressure (ICD-10-PCS; 2025-01-02)
PROC: 5A09357 Assistance with Respiratory Ventilation, Less than 24 Consecutive Hours, Continuous Positive Airway Pressure (ICD-10-PCS; 2025-01-03)
PROC: 5A0945A Assistance with Respiratory Ventilation, 24-96 Consecutive Hours, High Flow/Velocity Cannula (ICD-10-PCS; 2025-01-04)
PROC: 5A0935A Assistance with Respiratory Ventilation, Less than 24 Consecutive Hours, High Flow/Velocity Cannula (ICD-10-PCS; 2025-01-06)
PROC: 4A02XM4 Measurement of Cardiac Total Activity, External Approach (ICD-10-PCS; 2025-01-07)
PROC: 3E033HZ Introduction of Radioactive Substance into Peripheral Vein, Percutaneous Approach (ICD-10-PCS; 2025-01-07)
PROC: 5A0935A Assistance with Respiratory Ventilation, Less than 24 Consecutive Hours, High Flow/Velocity Cannula (ICD-10-PCS; 2025-01-08)
DX: A41.9 Sepsis, unspecified organism (principal); J96.21 Acute and chronic respiratory failure with hypoxia; R65.21 Severe sepsis with septic shock; I21.4 Non-ST elevation (NSTEMI) myocardial infarction; G93.41 Metabolic encephalopathy; J18.9 Pneumonia, unspecified organism; I13.0 Hypertensive heart and chronic kidney disease with heart failure and stage 1 through stage 4 chronic kidney disease, or unspecified chronic kidney disease; R18.8 Other ascites; I50.9 Heart failure, unspecified; J96.22 Acute and chronic respiratory failure with hypercapnia; J44.0 Chronic obstructive pulmonary disease with (acute) lower respiratory infection; N17.9 Acute kidney failure, unspecified; N18.4 Chronic kidney disease, stage 4 (severe); J44.1 Chronic obstructive pulmonary disease with (acute) exacerbation; I48.0 Paroxysmal atrial fibrillation; I73.9 Peripheral vascular disease, unspecified; E66.9 Obesity, unspecified; D63.1 Anemia in chronic kidney disease; Z87.891 Personal history of nicotine dependence; Z79.01 Long term (current) use of anticoagulants
CPT/HCPCS: 31500; 36415; 36556; 36600; 71045; 71250; 74176; 80048; 80053; 80061; 80305; 81001; 82570; 82803; 82948; 83605; 83735; 83880; 83930; 83935; 84100; 84134; 84145; 84300; 84478; 84484; 85007; 85008; 85018; 85025; 85610; 85730; 86140; 87040; 87070; 87077; 87081; 87186; 87207; 87502; 87503; 87811; 92508; 92616; 93005; 93017; 93306; 93922; 94002; 94003; 94640; 94660; 94760; 94799; 97110; 97116; 97161; 97530; 99291; A4314; A4615; A4620; A4628; A5200; A6213; A6250; A6258; A6260; A6402; A6449; A7015; A9500; C1751; C1758; G0378; J0330; J0456; J0696; J1630; J1644; J1650; J1940; J2250; J2270; J2470; J2704; J2785; J2919; J3010; J3370; J3475; J3480; J3490; J7040

== ENCOUNTER 2025-01-14 09:59 | Inpatient (IN) | payer MEDICAID ==
[~2025-01-14] VITALS: Ht 190.5 cm; Wt 113.0 kg
[~2025-01-14 09:59] MED LIST changes: -AMIO200T67 PO; -CARV25TA56 PO; -LACT1CAP55 PO; +MULT-1074 PO
[2025-01-14] MEDS: normal saline 1000ML IV soln IVB PRN (10:30)
[2025-01-14 12:19] LABS: BASOPHILS # (AUTO) 0.1 X10'3 (0-0.2); BASOPHILS % (AUTO) 1.3 % (0-1); EOSINOPHILS # (AUTO) 0.2 X10'3 (0-0.9); EOSINOPHILS % (AUTO) 2.8 % (0-6); HEMATOCRIT 36.2 % (42.0-52.0); HEMOGLOBIN 11.2 g/dl (14.0-17.9); LYMPHOCYTES # (AUTO) 0.8 X10'3 (1.1-4.8); LYMPHOCYTES % (AUTO) 14.1 % (21-51); MEAN CORPUSCULAR HEMOGLOBIN 25.9 PG (27.0-31.0); MEAN CORPUSCULAR VOLUME 83.5 FL (78-98); MEAN PLATELET VOLUME 8.3 FL (7.4-10.4); MONOCYTES # (AUTO) 0.5 X10'3 (0-0.9); MONOCYTES % (AUTO) 9.8 % (2-12); NEUTROPHILS # (AUTO) 3.9 X10'3 (1.8-7.7); PLATELET COUNT 342 X10'3 (140-440); RED BLOOD COUNT 4.33 X10'6 (4.70-6.10); RED CELL DISTRIBUTION WIDTH 19.3 % (11.5-14.5); WHITE BLOOD COUNT 5.5 X10'3 (4.5-11.0)
[2025-01-14 12:30] LABS: ALBUMIN 2.9 G/DL (3.4-5.0); ANION GAP 7 (8-16); BLOOD UREA NITROGEN 111 MG/DL (7-18); BUN/CREATININE RATIO 48.3 (10.0-20.0); CALCIUM 8.8 MG/DL (8.5-10.1); CHLORIDE 103 MMOL/L (99-107); GLUCOSE 112 MG/DL (70-104); MAGNESIUM 1.8 MG/DL (1.5-2.4); POTASSIUM 3.1 MMOL/L (3.5-5.1); SODIUM 141 MMOL/L (135-145); TOTAL CARBON DIOXIDE 30.6 MMOL/L (24-32); eCRCL 39 ML/MIN; eGFR 29 ML/MIN
[2025-01-14 13:32] LABS: ANISOCYTOSIS 2+; PLATELET ESTIMATE NORMAL
[2025-01-14 13:59] LABS: PRO BRAIN NATRIURETIC PEPTIDE 5190 PG/ML (0-125)
[2025-01-14 14:28] LABS: BILIRUBIN,URINE NEGATIVE (Neg); CLARITY,URINE CLEAR (Clear); COLOR,URINE YELLOW (Yellow); GLUCOSE, URINE NEGATIVE (Neg); KETONES,URINE NEGATIVE (Neg); LEUKOCYTE ESTERASE ,URINE NEGATIVE (Neg); NITRITES, URINE NEGATIVE (Neg); OCCULT BLOOD,URINE SMALL (Neg); PROTEIN,URINE NEGATIVE (Neg); UROBILINOGEN,URINE 0.2 E.U/dL (0.2-1.0)
[2025-01-14 14:36] LABS: UA COLLECTION TYPE FOLEY CATH
[2025-01-14 14:37] LABS: BACTERIA,URINE NONE SEEN /HPF (Neg); WBC,URINE 0-4 /HPF (0-4)
[2025-01-14 14:38] LABS: SQUAMOUS EPITHELIAL CELL,UR FEW /LPF (FEW)
[2025-01-14] MEDS ORDERED: ondansetron/PF 4mg/2ml inj IV PRN (15:20)
[2025-01-14] MEDS ORDERED: diphenhydrAMINE 25mg capsule PO PRN (15:20)
[2025-01-14] MEDS ORDERED: acetaminophen 650mg rectal suppository RC PRN (15:20)
[2025-01-14] MEDS ORDERED: potassium Cl 20 mEq SR tablet PO PRN (15:20)
[2025-01-14] MEDS ORDERED: mag hydrox/Alum hydrox/simeth 30ml oral suspension PO PRN (15:20)
[2025-01-14] MEDS ORDERED: morphine 2 MG/ML inj. syringe IV PRN ×2 (15:20)
[2025-01-14] MEDS ORDERED: HYDROcodone/acetaminophen 5mg/325mg tablet PO PRN (15:20)
[2025-01-14] MEDS ORDERED: ipratropium/albuterol 3ml nebule NEB PRN (15:20)
[2025-01-14] MEDS ORDERED: HYDROcodone/acetaminophen 10/325mg tab PO PRN (15:20)
[2025-01-14] MEDS ORDERED: bisacodyl 10mg suppository rectal RC PRN (15:20)
[2025-01-14] MEDS ORDERED: magnesium hydroxide 30ml (MOM) UD suspension PO PRN (15:20)
[2025-01-14] MEDS ORDERED: acetaminophen 325mg tablet PO PRN ×2 (15:20)
[2025-01-14] MEDS ORDERED: ondansetron 4mg rapidly disintigrating tab PO PRN (15:20)
[2025-01-14] MEDS ORDERED: potassium Cl 40MEQ/1/2NS 520ml 520 ML IV PRN (15:20)
[2025-01-14] MEDS ORDERED: diphenhydrAMINE 50 mg/ml inj IV PRN (15:20)
[2025-01-14 15:57] LABS: APTT 27 SECONDS (22-32); INR 1.1 INR; PROTHROMBIN TIME 11.8 SECONDS (9.0-12.0)
[2025-01-14 16:00] LABS: LIPASE 158 U/L (16-77); PHOSPHORUS 3.5 MG/DL (2.3-4.5)
[2025-01-14 16:02] LABS: ETHANOL < 10 MG/DL (<10)
[2025-01-14] MEDS: potassium Cl 20mEq in NS 1,000 ML IV SCH (16:48)
[2025-01-14 17:03] VITALS: PULSE 102; RESP 20; O2SAT 89
[2025-01-14] MEDS: K and/or MAG REPLACEMENT MC SCH (20:31)
[2025-01-14] MEDS: docusate sod 100mg capsule PO SCH (20:43)
[2025-01-14] MEDS: heparin, porcine 5000 units/ml vial SQ SCH (20:43)
[2025-01-14 20:49] LABS: URINE AMPHETAMINE SCREEN NEGATIVE (Neg); URINE BARBITUATE SCREEN NEGATIVE (Neg); URINE BENZODIAZEPINES SCREEN NEGATIVE (Neg); URINE CANNABINOID SCREEN NEGATIVE (Neg); URINE COCAINE SCREEN NEGATIVE (Neg); URINE METHADONE SCREEN NEGATIVE (Neg); URINE OPIATE SCREEN NEGATIVE (Neg); URINE PHENCYCLIDINE SCREEN NEGATIVE (Neg)
[2025-01-14] MEDS ORDERED: temazepam 15mg capsule PO PRN (21:00)
[2025-01-15] VITALS (11 sets, daily range): BP systolic 97–122; BP diastolic 54–84; PULSE 88–122; RESP 14–21; TEMP 97–98.8; O2SAT 93–98
[2025-01-15] MEDS: potassium Cl 20 mEq SR tablet PO PRN (01:54)
[2025-01-15 06:39] LABS: BASOPHILS # (AUTO) 0.1 X10'3 (0-0.2); BASOPHILS % (AUTO) 1.8 % (0-1); EOSINOPHILS # (AUTO) 0.2 X10'3 (0-0.9); EOSINOPHILS % (AUTO) 4.3 % (0-6); HEMATOCRIT 31.9 % (42.0-52.0); HEMOGLOBIN 10.1 g/dl (14.0-17.9); LYMPHOCYTES # (AUTO) 1.1 X10'3 (1.1-4.8); MEAN CORPUSCULAR HEMOGLOBIN 26.4 PG (27.0-31.0); MEAN CORPUSCULAR HGB CONC 31.8 g/dL (33.0-36.5); MEAN CORPUSCULAR VOLUME 83.2 FL (78-98); MEAN PLATELET VOLUME 8.4 FL (7.4-10.4); MONOCYTES # (AUTO) 0.5 X10'3 (0-0.9); NEUTROPHILS # (AUTO) 2.5 X10'3 (1.8-7.7); NEUTROPHILS % (AUTO) 56.9 % (42-75); PLATELET COUNT 298 X10'3 (140-440); RED BLOOD COUNT 3.84 X10'6 (4.70-6.10); RED CELL DISTRIBUTION WIDTH 19.8 % (11.5-14.5); WHITE BLOOD COUNT 4.3 X10'3 (4.5-11.0)
[2025-01-15 07:06] LABS: ALANINE AMINOTRANSFERASE 44 U/L (12-78); ALBUMIN 2.4 G/DL (3.4-5.0); ALBUMIN/GLOBULIN RATIO 0.5 (1.1-1.5); ALKALINE PHOSPHATASE 70 IU/L (46-116); ANION GAP 6 (8-16); ASPARTATE AMINO TRANSFERASE 30 U/L (10-37); BILIRUBIN,TOTAL 0.5 MG/DL (0.1-1.0); BLOOD UREA NITROGEN 85 MG/DL (7-18); BUN/CREATININE RATIO 39.5 (10.0-20.0); CALCIUM 8.4 MG/DL (8.5-10.1); CHLORIDE 108 MMOL/L (99-107); CREATININE 2.15 MG/DL (0.60-1.10); GLUCOSE 88 MG/DL (70-104); MAGNESIUM 1.5 MG/DL (1.5-2.4); POTASSIUM 3.6 MMOL/L (3.5-5.1); SODIUM 143 MMOL/L (135-145); TOTAL CARBON DIOXIDE 29.1 MMOL/L (24-32); TOTAL PROTEIN 7.1 G/DL (6.4-8.2); eCRCL 42 ML/MIN; eGFR 31 ML/MIN
[2025-01-15] MEDS ORDERED: diazepam inj 5 MG/ML inj. IV PRN (10:15)
[2025-01-15] MEDS: metoprolol succinate 25mg (24-HOUR) SR. Tablet PO SCH (12:20)
[2025-01-15] MEDS: apixaban 5mg tablet PO SCH (19:09)
[2025-01-16 02:00] VITALS: BP 115/70; PULSE 113; RESP 15; TEMP 97.5; O2SAT 97
[2025-01-16 06:00] VITALS: BP 130/73; PULSE 89; RESP 15; TEMP 97.7; O2SAT 97
[2025-01-16 07:04] LABS: ALANINE AMINOTRANSFERASE 45 U/L (12-78); ALBUMIN 2.6 G/DL (3.4-5.0); ALBUMIN/GLOBULIN RATIO 0.5 (1.1-1.5); ALKALINE PHOSPHATASE 88 IU/L (46-116); ANION GAP 7 (8-16); ASPARTATE AMINO TRANSFERASE 33 U/L (10-37); BILIRUBIN,TOTAL 0.6 MG/DL (0.1-1.0); BLOOD UREA NITROGEN 65 MG/DL (7-18); BUN/CREATININE RATIO 39.9 (10.0-20.0); CALCIUM 9.2 MG/DL (8.5-10.1); CHLORIDE 110 MMOL/L (99-107); CREATININE 1.63 MG/DL (0.60-1.10); GLUCOSE 94 MG/DL (70-104); MAGNESIUM 1.5 MG/DL (1.5-2.4); SODIUM 144 MMOL/L (135-145); TOTAL CARBON DIOXIDE 26.9 MMOL/L (24-32); TOTAL PROTEIN 7.4 G/DL (6.4-8.2); eCRCL 55 ML/MIN; eGFR 43 ML/MIN
[2025-01-16 07:10] LABS: BASOPHILS # (AUTO) 0.1 X10'3 (0-0.2); BASOPHILS % (AUTO) 1.7 % (0-1); EOSINOPHILS # (AUTO) 0.2 X10'3 (0-0.9); EOSINOPHILS % (AUTO) 3.6 % (0-6); HEMATOCRIT 33.7 % (42.0-52.0); HEMOGLOBIN 10.5 g/dl (14.0-17.9); LYMPHOCYTES % (AUTO) 20.1 % (21-51); MEAN CORPUSCULAR HEMOGLOBIN 25.9 PG (27.0-31.0); MEAN CORPUSCULAR HGB CONC 31.1 g/dL (33.0-36.5); MEAN CORPUSCULAR VOLUME 83.5 FL (78-98); MEAN PLATELET VOLUME 8.5 FL (7.4-10.4); MONOCYTES # (AUTO) 0.6 X10'3 (0-0.9); MONOCYTES % (AUTO) 10.9 % (2-12); NEUTROPHILS # (AUTO) 3.3 X10'3 (1.8-7.7); NEUTROPHILS % (AUTO) 63.7 % (42-75); PLATELET COUNT 300 X10'3 (140-440); RED BLOOD COUNT 4.04 X10'6 (4.70-6.10); RED CELL DISTRIBUTION WIDTH 19.6 % (11.5-14.5); WHITE BLOOD COUNT 5.1 X10'3 (4.5-11.0)
[2025-01-16] MEDS: atorvastatin 10mg tablet PO SCH (07:49)
[2025-01-16 08:00] VITALS: RESP 16; O2SAT 95
[2025-01-16] MEDS ORDERED: LOP25T PO (10:50)
[2025-01-16 11:00] VITALS: PULSE 114; RESP 24
== END 2025-01-16 11:10 | disposition home or self-care (01) | DRG 133 ==
LOC: ER 09:59 → ED HOLD 15:26 → PCU 3S 01-15 00:16
PROVIDERS: ADMIT Family Medicine; ATTEND Family Medicine
DX: J96.01 Acute respiratory failure with hypoxia (principal); G93.41 Metabolic encephalopathy; I50.33 Acute on chronic diastolic (congestive) heart failure; N17.9 Acute kidney failure, unspecified; I95.9 Hypotension, unspecified; I13.0 Hypertensive heart and chronic kidney disease with heart failure and stage 1 through stage 4 chronic kidney disease, or unspecified chronic kidney disease; I27.20 Pulmonary hypertension, unspecified; E86.1 Hypovolemia; I73.9 Peripheral vascular disease, unspecified; N18.4 Chronic kidney disease, stage 4 (severe); D64.9 Anemia, unspecified; E87.6 Hypokalemia; F10.20 Alcohol dependence, uncomplicated; I25.10 Atherosclerotic heart disease of native coronary artery without angina pectoris; I48.91 Unspecified atrial fibrillation; K21.9 Gastro-esophageal reflux disease without esophagitis; J44.9 Chronic obstructive pulmonary disease, unspecified; E78.00 Pure hypercholesterolemia, unspecified; Z79.01 Long term (current) use of anticoagulants; Z87.891 Personal history of nicotine dependence; Z79.899 Other long term (current) drug therapy
CPT/HCPCS: 36415; 70450; 71045; 80048; 80053; 80305; 80320; 81001; 83605; 83690; 83735; 83880; 84100; 84145; 84484; 85008; 85025; 85379; 85610; 85730; 87040; 87081; 93005; 94760; 99285; G0378; J1644; J3480; J7030

== ENCOUNTER 2025-10-17 19:38 | Emergency (ER) | payer MEDICAID ==
[~2025-10-17] VITALS: Ht 198.1 cm; Wt 98.0 kg
[~2025-10-17 19:38] MED LIST changes: +LOP25T PO; -MULT-1074 PO; +PRAV20TA17 PO; -PRAV20TA4 PO
[2025-10-17 20:11] VITALS: BP 188/78; PULSE 102; RESP 19; TEMP 96.3; O2SAT 99
== END 2025-10-17 22:19 | disposition left against medical advice (07) ==
LOC: ER 19:39
DX: M79.671 Pain in right foot (principal); M79.672 Pain in left foot
CPT/HCPCS: 99281